=== PATIENT | female | born 2000 | race Two or more races ===

== ENCOUNTER 2018-08-26 12:29 | Inpatient (IN) | payer MEDICARE, OTHER ==
[~2018-08-26] VITALS: Ht 165.1 cm; Wt 84.6 kg
[2018-08-26] VITALS (11 sets, daily range): BP systolic 74–200; BP diastolic 36–116
[~2018-08-26 12:29] MED LIST: LABE100T5 PO
--- NOTE | 2018-08-26 12:58 | PHYS DOC ---
Adult General Chief Complaint Chief Complaint: seizure HPI HPI Patient is a 18 year old female who presents with report of having had seizure- like activity at home. EMS reports that patient had been standing and had fallen to the ground with generalized seizure-like activity. EMS states that call had gone out as CODE BLUE in progress and when they had arrived, patient appeared to be postictal. An IV was established and patient became very combative and was thus given a dose of IV Versed. Additional history is limited at this time due to mental status. Review of Systems Review of Systems Constitutional: Denies fever [] Respiratory: Denies shortness of breath [] Neurologic: Positive seizure-like activity and mental status change[] Unable to fully evaluate review of systems due to mental status. Current Medications Current Medications Current Medications Medications (Trade) Dose Ordered Sig/Prosper Start Time Stop Time Status Last Admin Dose Admin Labetalol HCl (Normodyne Iv Push) 20 mg STK-MED ONCE 08/26/18 13:42 08/26/18 13:43 DC Lorazepam (Ativan) 2 mg 1X ONCE 08/26/18 14:15 08/26/18 14:16 DC 08/26/18 14:19 2 MG Ondansetron HCl (Zofran) 4 mg STK-MED ONCE 08/26/18 13:42 08/26/18 13:43 DC Allergies Allergies Allergies Coded Allergies Type Severity Reaction Last Updated Verified No Known Drug Allergies 03/10/14 No Physical Exam Physical Exam Constitutional: Well developed, well nourished, no acute distress, non-toxic appearance. [] HENT: Normocephalic, atraumatic, bilateral external ears normal, oropharynx moist, no oral exudates, nose normal. [] Eyes: PERRLA, conjunctiva normal, no discharge. [] Neck: Normal range of motion, no tenderness, supple, no stridor. [] Cardiovascular: Regular rate and rhythm [] Lungs & Thorax: Bilateral breath sounds clear to auscultation [] Abdomen: Bowel sounds normal, soft. [] Skin: Warm, dry, no erythema, no rash. [] Extremities: No tenderness, no cyanosis, no clubbing, ROM intact, no edema. [] Neurologic: Somnolent but arousable, postictal state. [] Current Patient Data Vital Signs Vital Signs Date Time Temp Pulse Resp B/P (MAP) Pulse Ox O2 Delivery O2 Flow Rate FiO2 08/26/18 13:46 85 208/125 08/26/18 12:44 98.9 20 95 Room Air 98.9 Lab Values Laboratory Tests Test 08/26/18 13:00 White Blood Count 10.0 x10^3/uL (4.0-11.0) Red Blood Count 4.24 x10^6/uL (3.50-5.40) Hemoglobin 13.1 g/dL (12.0-15.5) Hematocrit 38.9 % (36.0-47.0) Mean Corpuscular Volume 92 fL (79-100) Mean Corpuscular Hemoglobin 31 pg (25-35) Mean Corpuscular Hemoglobin Concent 34 g/dL (31-37) Red Cell Distribution Width 16.3 % (11.5-14.5) H Platelet Count 215 x10^3/uL (140-400) Neutrophils (%) (Auto) 94 % (31-73) H Lymphocytes (%) (Auto) 4 % (24-48) L Monocytes (%) (Auto) 2 % (0-9) Eosinophils (%) (Auto) 0 % (0-3) Basophils (%) (Auto) 0 % (0-3) Neutrophils # (Auto) 9.3 x10^3uL (1.8-7.7) H Lymphocytes # (Auto) 0.4 x10^3/uL (1.0-4.8) L Monocytes # (Auto) 0.2 x10^3/uL (0.0-1.1) Eosinophils # (Auto) 0.0 x10^3/uL (0.0-0.7) Basophils # (Auto) 0.0 x10^3/uL (0.0-0.2) Segmented Neutrophils % 92 % (35-66) H Band Neutrophils % 1 % (0-9) Lymphocytes % 5 % (24-48) L Monocytes % 1 % (0-10) Basophils % 1 % (0-3) Platelet Estimate Adequate (ADEQUATE) Anisocytosis Slight Sodium Level 137 mmol/L (136-145) Potassium Level 4.9 mmol/L (3.5-5.1) Chloride Level 100 mmol/L (98-107) Carbon Dioxide Level 15 mmol/L (21-32) L Anion Gap 22 (6-14) H Blood Urea Nitrogen 148 mg/dL (7-20) H Creatinine 19.3 mg/dL (0.6-1.0) H Estimated GFR (Cockcroft-Gault) 2.3 BUN/Creatinine Ratio 8 (6-20) Glucose Level 90 mg/dL (70-99) Calcium Level 8.7 mg/dL (8.5-10.1) Phosphorus Level 10.3 mg/dL (2.6-4.7) H Magnesium Level 2.9 mg/dL (1.8-2.4) H Total Bilirubin 0.4 mg/dL (0.2-1.0) Aspartate Amino Transferase (AST) 13 U/L (15-37) L Alanine Aminotransferase (ALT) 16 U/L (14-59) Alkaline Phosphatase 78 U/L (46-116) Total Protein 7.8 g/dL (6.4-8.2) Albumin 4.0 g/dL (3.4-5.0) Albumin/Globulin Ratio 1.1 (1.0-1.7) Serum Test, Qualitative Negative (NEG) Laboratory Tests 08/26/18 13:00 Laboratory Tests 08/26/18 13:00 EKG EKG [] Radiology/Procedures Radiology/Procedures [] Impressions: CT scan of the head without contrast 08/26/2018 Clinical History: Hypertension and seizure. Technique: Unenhanced, contiguous, 5 mm axial sections were obtained through the head. One or more of the following individualized dose reduction techniques were utilized for this study: 1. Automated exposure control. 2. Adjustment of the mA and/or kV according to patient size. 3. Use of iterative reconstruction technique. Findings: No previous studies are available for comparison. The ventricles are within normal limits in size and configuration. Somewhat symmetric areas of decreased attenuation are seen involving the occipital and posterior parietal lobes bilaterally. These areas measure 1 to 1.4 cm in size. These could represent areas of edema possibly in the setting of PRES. Clinical correlation is recommended. No additional acute parenchymal abnormality is seen. No extra-axial fluid collection is noted. No skull fracture is seen. A 2.8 cm mucous retention cyst is seen involving the left maxillary sinus. Impression: Somewhat symmetric areas of decreased attenuation are seen involving the occipital and parietal lobes bilaterally. These could reflect areas of edema possibly in the setting of posterior reversible encephalopathy syndrome (PRES). Clinical correlation is recommended. These findings could be further evaluated with a MRI of the brain without and with contrast. Electronically signed by: Kyler Duran MD (08/26/2018 2:07 PM) [id number] Course & Med Decision Making Course & Med Decision Making Pertinent Labs and Imaging studies reviewed. (See chart for details) [] Dragon Disclaimer Dragon Disclaimer This electronic medical record was generated, in whole or in part, using a voice recognition dictation system. Departure Departure Impression: Primary Impression: Recurrent seizures Additional Impression: ESRD (end stage renal disease) on dialysis Disposition: ADMITTED INPATIENT Admitting Physician: David Peterson Condition: IMPROVED Referrals: TIM DIOR APRN (PCP) Problem Qualifiers JOHAN SAPP Jr. DO Aug 26, 2018 12:58
[2018-08-26 13:17] LABS: BASO % 0 % (0-3); EOS % 0 % (0-3); HEMATOCRIT 38.9 % (36.0-47.0); HEMOGLOBIN 13.1 g/dL (12.0-15.5); LYMPH # 0.4 x10^3/uL (1.0-4.8); LYMPH % 4 % (24-48); MEAN CORPUSCULAR HEMOGLOBIN 31 pg (25-35); MEAN CORPUSCULAR HGB CONC 34 g/dL (31-37); MEAN CORPUSCULAR VOLUME 92 fL (79-100); MONO # 0.2 x10^3/uL (0.0-1.1); MONO % 2 % (0-9); NEUT # 9.3 x10^3uL (1.8-7.7); NEUT % 94 % (31-73); PLATELET COUNT 215 x10^3/uL (140-400); RED BLOOD COUNT 4.24 x10^6/uL (3.50-5.40); RED CELL DISTRIBUTION WIDTH 16.3 % (11.5-14.5)
[2018-08-26 13:34] LABS: % BANDS 1 % (0-9); % BASOS 1 % (0-3); % LYMPHS 5 % (24-48); % MONOS 1 % (0-10); % SEGS 92 % (35-66); ANISOCYTOSIS SLIGHT; PLT ESTIMATE ADEQUATE (ADEQUATE)
[2018-08-26 13:38] LABS: CALCIUM 8.7 mg/dL (8.5-10.1); POTASSIUM 4.9 mmol/L (3.5-5.1)
[2018-08-26 13:40] LABS: PREG TEST PT QUAL NEGATIVE (NEG)
[2018-08-26] MEDS ORDERED: LABETALOL 20 MG/4 ML DISP.SYRIN. IVP ONE ×3 (13:42→17:15)
[2018-08-26] MEDS ORDERED: ONDANSETRON PF 4 MG/2 ML VIAL. ONE (13:42)
[2018-08-26] MEDS ORDERED: ONDANSETRON PF 4 MG/2 ML VIAL. IV ONE (13:45)
[2018-08-26 13:47] LABS: ALBUMIN/GLOBULIN RATIO 1.1 (1.0-1.7); MAGNESIUM 2.9 mg/dL (1.8-2.4); TOTAL BILIRUBIN 0.4 mg/dL (0.2-1.0); TOTAL PROTEIN 7.8 g/dL (6.4-8.2)
[2018-08-26 13:57] LABS: PHOSPHORUS 10.3 mg/dL (2.6-4.7)
[2018-08-26 13:58] LABS: CREATININE 19.3 mg/dL (0.6-1.0); GFR 2.3
--- NOTE | 2018-08-26 14:11 | RAD ---
CT scan of the head without contrast 08/26/2018 Clinical History: Hypertension and seizure. Technique: Unenhanced, contiguous, 5 mm axial sections were obtained through the head. One or more of the following individualized dose reduction techniques were utilized for this study: 1. Automated exposure control. 2. Adjustment of the mA and/or kV according to patient size. 3. Use of iterative reconstruction technique. Findings: No previous studies are available for comparison. The ventricles are within normal limits in size and configuration. Somewhat symmetric areas of decreased attenuation are seen involving the occipital and posterior parietal lobes bilaterally. These areas measure 1 to 1.4 cm in size. These could represent areas of edema possibly in the setting of PRES. Clinical correlation is recommended. No additional acute parenchymal abnormality is seen. No extra-axial fluid collection is noted. No skull fracture is seen. A 2.8 cm mucous retention cyst is seen involving the left maxillary sinus. Impression: Somewhat symmetric areas of decreased attenuation are seen involving the occipital and parietal lobes bilaterally. These could reflect areas of edema possibly in the setting of posterior reversible encephalopathy syndrome (PRES). Clinical correlation is recommended. These findings could be further evaluated with a MRI of the brain without and with contrast. Electronically signed by: Kyler Duran MD (08/26/2018 2:07 PM) [id number]
[2018-08-26 14:34] LABS: BARBITURATES NEG (NEG); BENZODIAZEPINES POS (NEG); CANNABINOIDS NEG (NEG); COCAINE NEG (NEG); METHADONE NEG (NEG); OPIATES NEG (NEG); PHENCYCLIDINE NEG (NEG)
[2018-08-26 14:35] LABS: AMPHETAMINE/METHAMPHETAMINE NEG (NEG)
--- NOTE | 2018-08-26 14:46 | PDOC1 ---
History and Physical Date of Admission Date of Admission DATE: 08/26/18 TIME: 14:45 Identification/Chief Complaint Chief Complaint seen in er after seizure today, will plan emergent dialysis in icu today Past Medical History Cardiovascular: HTN Renal/: Chronic renal insuff Past Surgical History Past Surgical History: No pertinent history Family History Family History: Hypertension Social History Smoke: No ALCOHOL: none Drugs: None Current Problem List Problem List Problems Medical Problems: (1) ESRD (end stage renal disease) on dialysis Status: Acute (2) Recurrent seizures Status: Acute Current Medications Current Medications Current Medications Ondansetron HCl (Zofran) 4 mg 1X ONCE IV Last administered on 08/26/18at 13:45 ; Start 08/26/18 at 13:45; Stop 08/26/18 at 13:46; Status DC Labetalol HCl (Normodyne Iv Push) 10 mg 1X ONCE IVP Last administered on at 13:46; Start 08/26/18 at 13:45; Stop 08/26/18 at 13:46; Status DC Labetalol HCl (Normodyne Iv Push) 20 mg STK-MED ONCE IVP ; Start 08/26/18 at 13: 42; Stop 08/26/18 at 13:43; Status DC Ondansetron HCl (Zofran) 4 mg STK-MED ONCE .ROUTE ; Start 08/26/18 at 13:42; Stop 08/26/18 at 13:43; Status DC Lorazepam (Ativan) 2 mg STK-MED ONCE .ROUTE ; Start 08/26/18 at 14:12; Stop 08/26/18 at 14:13; Status DC Lorazepam (Ativan) 2 mg 1X ONCE IV Last administered on 08/26/18at 14:19; Start 08/26/18 at 14:15; Stop 08/26/18 at 14:16; Status DC Active Scripts Active Reported Labetalol Hcl 100 Mg Tablet 100 Mg PO DAILY08 Allergies Allergies: Coded Allergies: No Known Drug Allergies (Unverified , 03/10/14) ROS Review of System Review of Systems Review of Systems Constitutional: Denies fever [] Respiratory: Denies shortness of breath [] Neurologic: Positive seizure-like activity and mental status change seizure at home[] Unable to fully evaluate review of systems due to mental status. 14 pt ros otherwise neg according to family General: YES: Fatigue PSYCHOLOGICAL ROS: YES: Disorientation Eyes: Yes Decreased vision ALLERGY AND IMMUNOLOGY: No: Hives, Insect Bite Sensitivity, Itchy/Watery Eyes, Nasal Congestion, Post Nasal Drip, Seasonal Allergies, Other Hematological and Lymphatic: No: Bleeding Problems, Blood Clots, Blood Transfusions, Brusing, Night Sweats, Pallor, Swollen Lymph Nodes, Other ENDOCRINE: No: Breast Changes, Galactorrhea, Hair Pattern Changes, Hot Flashes , Malaise/lethargy, Mood Swings, Palpitations, Polydipsia/polyuria, Skin Changes , Temperature Intolerance, Unexpected Weight Changes, Other Respiratory: No: Cough, Hemoptysis, Orthopnea, Pleuritic Pain, Shortness of breath, SOB with excertion, Sputum Changes, Stridor, Tachypnea, Wheezing, Other Neurological: Yes Confusion Physical Exam Physical Exam Physical Exam Physical Exam Constitutional: mild acute distress, non-toxic appearance. [] HENT: Normocephalic, atraumatic, bilateral external ears normal, oropharynx moist, no oral exudates, nose normal. [] Eyes: PERRLA, conjunctiva normal, no discharge. [] Neck: Normal range of motion, no tenderness, supple, no stridor. [] Cardiovascular: Regular rate and rhythm [] Lungs & Thorax: Bilateral breath sounds clear to auscultation [] Abdomen: Bowel sounds normal, soft. [] Skin: Warm, dry, no erythema, no rash. [] Extremities: No tenderness, no cyanosis, no clubbing, ROM intact, no edema. [] Neurologic: Somnolent but arousable, postictal state. [] General: Cooperative, mild distress Lungs: Clear to auscultation, Normal air movement Heart: S1S2, RRR Breasts: Not examined Abdomen: Normal bowel sounds, Soft, No tenderness Rectal Exam: not examined Neuro: Cranial nerves 3-12 NL Vitals Vitals Vital Signs Date Time Temp Pulse Resp B/P (MAP) Pulse Ox O2 Delivery O2 Flow Rate FiO2 08/26/18 13:46 85 208/125 08/26/18 12:44 98.9 20 95 Room Air 98.9 Labs Labs Laboratory Tests Test 08/26/18 13:00 08/26/18 14:10 White Blood Count 10.0 x10^3/uL (4.0-11.0) Red Blood Count 4.24 x10^6/uL (3.50-5.40) Hemoglobin 13.1 g/dL (12.0-15.5) Hematocrit 38.9 % (36.0-47.0) Mean Corpuscular Volume 92 fL (79-100) Mean Corpuscular Hemoglobin 31 pg (25-35) Mean Corpuscular Hemoglobin Concent 34 g/dL (31-37) Red Cell Distribution Width 16.3 % (11.5-14.5) Platelet Count 215 x10^3/uL (140-400) Neutrophils (%) (Auto) 94 % (31-73) Lymphocytes (%) (Auto) 4 % (24-48) Monocytes (%) (Auto) 2 % (0-9) Eosinophils (%) (Auto) 0 % (0-3) Basophils (%) (Auto) 0 % (0-3) Neutrophils # (Auto) 9.3 x10^3uL (1.8-7.7) Lymphocytes # (Auto) 0.4 x10^3/uL (1.0-4.8) Monocytes # (Auto) 0.2 x10^3/uL (0.0-1.1) Eosinophils # (Auto) 0.0 x10^3/uL (0.0-0.7) Basophils # (Auto) 0.0 x10^3/uL (0.0-0.2) Segmented Neutrophils % 92 % (35-66) Band Neutrophils % 1 % (0-9) Lymphocytes % 5 % (24-48) Monocytes % 1 % (0-10) Basophils % 1 % (0-3) Platelet Estimate Adequate (ADEQUATE) Anisocytosis Slight Sodium Level 137 mmol/L (136-145) Potassium Level 4.9 mmol/L (3.5-5.1) Chloride Level 100 mmol/L (98-107) Carbon Dioxide Level 15 mmol/L (21-32) Anion Gap 22 (6-14) Blood Urea Nitrogen 148 mg/dL (7-20) Creatinine 19.3 mg/dL (0.6-1.0) Estimated GFR (Cockcroft-Gault) 2.3 BUN/Creatinine Ratio 8 (6-20) Glucose Level 90 mg/dL (70-99) Calcium Level 8.7 mg/dL (8.5-10.1) Phosphorus Level 10.3 mg/dL (2.6-4.7) Magnesium Level 2.9 mg/dL (1.8-2.4) Total Bilirubin 0.4 mg/dL (0.2-1.0) Aspartate Amino Transf (AST/SGOT) 13 U/L (15-37) Alanine Aminotransferase (ALT/SGPT) 16 U/L (14-59) Alkaline Phosphatase 78 U/L (46-116) Total Protein 7.8 g/dL (6.4-8.2) Albumin 4.0 g/dL (3.4-5.0) Albumin/Globulin Ratio 1.1 (1.0-1.7) Serum Test, Qualitative Negative (NEG) Urine Opiates Screen Neg (NEG) Urine Methadone Screen Neg (NEG) Urine Barbiturates Neg (NEG) Urine Phencyclidine Screen Neg (NEG) Urine Amphetamine/Methamphetamine Neg (NEG) Urine Benzodiazepines Screen Pos (NEG) Urine Cocaine Screen Neg (NEG) Urine Cannabinoids Screen Neg (NEG) Urine Ethyl Alcohol Neg (NEG) Laboratory Tests Test 08/26/18 13:00 08/26/18 14:10 White Blood Count 10.0 x10^3/uL (4.0-11.0) Red Blood Count 4.24 x10^6/uL (3.50-5.40) Hemoglobin 13.1 g/dL (12.0-15.5) Hematocrit 38.9 % (36.0-47.0) Mean Corpuscular Volume 92 fL (79-100) Mean Corpuscular Hemoglobin 31 pg (25-35) Mean Corpuscular Hemoglobin Concent 34 g/dL (31-37) Red Cell Distribution Width 16.3 % (11.5-14.5) Platelet Count 215 x10^3/uL (140-400) Neutrophils (%) (Auto) 94 % (31-73) Lymphocytes (%) (Auto) 4 % (24-48) Monocytes (%) (Auto) 2 % (0-9) Eosinophils (%) (Auto) 0 % (0-3) Basophils (%) (Auto) 0 % (0-3) Neutrophils # (Auto) 9.3 x10^3uL (1.8-7.7) Lymphocytes # (Auto) 0.4 x10^3/uL (1.0-4.8) Monocytes # (Auto) 0.2 x10^3/uL (0.0-1.1) Eosinophils # (Auto) 0.0 x10^3/uL (0.0-0.7) Basophils # (Auto) 0.0 x10^3/uL (0.0-0.2) Segmented Neutrophils % 92 % (35-66) Band Neutrophils % 1 % (0-9) Lymphocytes % 5 % (24-48) Monocytes % 1 % (0-10) Basophils % 1 % (0-3) Platelet Estimate Adequate (ADEQUATE) Anisocytosis Slight Sodium Level 137 mmol/L (136-145) Potassium Level 4.9 mmol/L (3.5-5.1) Chloride Level 100 mmol/L (98-107) Carbon Dioxide Level 15 mmol/L (21-32) Anion Gap 22 (6-14) Blood Urea Nitrogen 148 mg/dL (7-20) Creatinine 19.3 mg/dL (0.6-1.0) Estimated GFR (Cockcroft-Gault) 2.3 BUN/Creatinine Ratio 8 (6-20) Glucose Level 90 mg/dL (70-99) Calcium Level 8.7 mg/dL (8.5-10.1) Phosphorus Level 10.3 mg/dL (2.6-4.7) Magnesium Level 2.9 mg/dL (1.8-2.4) Total Bilirubin 0.4 mg/dL (0.2-1.0) Aspartate Amino Transf (AST/SGOT) 13 U/L (15-37) Alanine Aminotransferase (ALT/SGPT) 16 U/L (14-59) Alkaline Phosphatase 78 U/L (46-116) Total Protein 7.8 g/dL (6.4-8.2) Albumin 4.0 g/dL (3.4-5.0) Albumin/Globulin Ratio 1.1 (1.0-1.7) Serum Test, Qualitative Negative (NEG) Urine Opiates Screen Neg (NEG) Urine Methadone Screen Neg (NEG) Urine Barbiturates Neg (NEG) Urine Phencyclidine Screen Neg (NEG) Urine Amphetamine/Methamphetamine Neg (NEG) Urine Benzodiazepines Screen Pos (NEG) Urine Cocaine Screen Neg (NEG) Urine Cannabinoids Screen Neg (NEG) Urine Ethyl Alcohol Neg (NEG) VTE Prophylaxis Ordered VTE Prophylaxis Devices: Yes VTE Pharmacological Prophylaxi: Yes Assessment/Plan Assessment/Plan impression 1. acute on chronic renal failure 2. hypertension 3. seizure 4. hx ckd since age 13 plan iv ativan 2 mg q 2 hrs prn seizure precautions nephrology consult icu bed neurology consult ct head 37 min cc time TAMEKA FLAHERTY MD Aug 26, 2018 14:46
[2018-08-26] MEDS ORDERED: levETIRAcetam 750 MG in IV DEXTROSE 5% 100ML 100 ML IV ONE (17:30)
[2018-08-26 17:31] LABS: BASE EXCESS ABG -16 mmol/L (-3-3); HCO3 ABG 11 mmol/L (21-28); PCO2 ABG 28 mmHg (35-46); PO2 ABG 200 mmHg (85-108); SAT O2 ABG 99 % (92-99)
[2018-08-26] MEDS ORDERED: SODIUM BICARB ADULT 8.4% 50 MEQ/50 ML DISP.SYRIN. ONE (17:34)
[2018-08-26 17:36] LABS: FIO2 ABG 21
[2018-08-26] MEDS ORDERED: SODIUM BICARB ADULT 8.4% 50 MEQ/50 ML DISP.SYRIN. IV ONE (17:45)
[2018-08-26] MEDS ORDERED: IV NORMAL SALINE 1000ML BAG 1,000 ML IV PRN ×2 (17:55)
[2018-08-26] MEDS ORDERED: DIALYSIS PATIENT. MC PRN ×2 (18:00)
[2018-08-26] MEDS ORDERED: SODIUM BICARBONATE VIAL 50 MEQ in IV NORMAL SALINE 1000ML BAG 1,000 ML IV SCH (18:00)
--- NOTE | 2018-08-26 20:08 | PDOC2 ---
NEUROLOGY CONSULT Date of Admission Date of Admission DATE: 08/26/18 TIME: 19:52 Reason for Consult Reason for Consult: IMPRESSION: Seizure, status epilepticus. PRES syndrome. Hypertensive emergency, BP 200/116 mmHg. Metabolic encephalopathy. Hypertensive encephalopathy. Renal failure, not compliant to dialysis. HTN. Obesity. RECOMMENDATIONS/PLAN: Ativan 2 mg IV q 4h PRN seizure. Keppra 750 mg IV x 1 dose. Keppra 500 mg IV q12h. Dialysis. EEG. Brain MRI w/o contrast. No contrast due to renal failure. Lab: see orders. Discussed with her mother and sister at bedside in ICU on 08/26/18. HISTORY OF THE PRESENT ILLNESS: 18-y-old female patient with Hx of renal failure stated to have dialysis in , but she missed dialysis due to not compliant to the treatment. She had a seizure or seizure like episode to be brought to the ER of [facility] and was admitted to [facility]. She tehn had more seizures want to status to be transferred to ICU. Per her sister, she had a seizure about 4 months agao and was seen in [facility] thought was related to UTI. PAST MEDICAL HISTORY: HTN. Renal failure. PAST SURGICAL HISTORY: Dialysis fistula placement. ALLERGY: Unknown MEDICATIONS: Refer to [facility] FAMILY HISTORY: HTN. SOCIAL HISTORY: On disability. Lives with her mother and her 4 year boy. Denies smoking, drinking, and illicit drug use. REVIEW OF SYSTEMS: Constitutional: Obesity. Head: No traumatic brain or head injury. Skin: No edema, or rash. Ear: No infection, tinnitus. Eyes: No vision loss or color blindness. Nose: No bleeding or purulent discharges. Hearing: No hearing decrease. Neck: No injury. Breast: No history of cancer, masses,or discharges. Cardiac: HTN. Pulmonary: No pneumonia, COPD. GI: No GI ulcer, GI bleeding. Urinary/genital: Renal failure, UTI. Endocrinologic: Obesity. Skeletomuscular: No muscular atrophy, deformity. Neurological: see HP. Psychiatric: Denies drug use/abuse. Otherwise, not [id number] review of systems. PHYSICAL EXAMINATION: General appearance is in acute distress. HEENT: Normocephalic and nontraumatic. Eyes, nose, ears, and throat are unremarkable. Neck is supple. No lymphadenopathy. No bruits are heard over the carotid artery. No crepitus. Cardiovascular: S1, S2, regular rate and rhythm. Pulmonary: Clear to auscultation bilaterally. Abdomen: Bowel sounds are positive. Extremities: No rash, lesions, or edema. No restriction of range of motion NEUROLOGICAL EXAMINATION: Mildly lethargic. Not oriented to time, place but knew her family. PERRL. EOMI. CN: no focal findings. Muscle tone: within normal. Muscle strength: 4-5 DTR: 1-2 Plantar reflex: Flexor response bilaterally Gait: not examined in bed. Sensory exam: no abnormal findings. Not able to access cerebellar signs due to lethargy. F-T-N test nor performed due to not follow commands.. Current Medications Current Medications Current Medications Ondansetron HCl (Zofran) 4 mg 1X ONCE IV Last administered on 08/26/18at 13:45 ; Start 08/26/18 at 13:45; Stop 08/26/18 at 13:46; Status DC Labetalol HCl (Normodyne Iv Push) 10 mg 1X ONCE IVP Last administered on at 13:46; Start 08/26/18 at 13:45; Stop 08/26/18 at 13:46; Status DC Labetalol HCl (Normodyne Iv Push) 20 mg STK-MED ONCE IVP ; Start 08/26/18 at 13: 42; Stop 08/26/18 at 13:43; Status DC Ondansetron HCl (Zofran) 4 mg STK-MED ONCE .ROUTE ; Start 08/26/18 at 13:42; Stop 08/26/18 at 13:43; Status DC Lorazepam (Ativan) 2 mg STK-MED ONCE .ROUTE ; Start 08/26/18 at 14:12; Stop 08/26/18 at 14:13; Status DC Lorazepam (Ativan) 2 mg 1X ONCE IV Last administered on 08/26/18at 14:19; Start 08/26/18 at 14:15; Stop 08/26/18 at 14:16; Status DC Lorazepam (Ativan) 2 mg 1X STAT IV Last administered on 08/26/18at 16:02; Start 08/26/18 at 16:09; Stop 08/26/18 at 16:16; Status DC Lorazepam (Ativan) 2 mg PRN Q4HRS PRN IV ANXIETY / AGITATION; Start 08/26/18 at 17:15 Levetiracetam 750 mg/Dextrose 107.5 ml @ 440 mls/hr 1X ONCE IV Last administered on 08/26/18at 17:42; Start 08/26/18 at 17:30; Stop 08/26/18 at 17:44 ; Status DC Levetiracetam 500 mg/Dextrose 105 ml @ 420 mls/hr Q12HR IV ; Start 08/27/18 at 09:00 Heparin Sodium (Porcine) (Heparin Sodium) 5,000 unit BID SQ ; Start 08/26/18 at 21:00 Labetalol HCl (Normodyne Iv Push) 20 mg 1X ONCE IVP Last administered on at 17:40; Start 08/26/18 at 17:15; Stop 08/26/18 at 17:16; Status DC Lorazepam (Ativan) 2 mg PRN Q2HR PRN IV SEIZURE Last administered on 08/26/18at 17:03; Start 08/26/18 at 17:15 Sodium Bicarbonate (Sodium Bicarb Adult 8.4% Syr) 50 meq STK-MED ONCE .ROUTE ; Start 08/26/18 at 17:34; Stop 08/26/18 at 17:35; Status DC Sodium Bicarbonate (Sodium Bicarb Adult 8.4% Syr) 50 meq 1X ONCE IV Last administered on 08/26/18at 17:41; Start 08/26/18 at 17:45; Stop 08/26/18 at 17:46 ; Status DC Sodium Bicarbonate 50 meq/Sodium Chloride 1,050 ml @ 80 mls/hr Q13H8M IV Last administered on 08/26/18at 17:58; Start 08/26/18 at 18:00; Stop 08/27/18 at 07:07 Sodium Chloride 1,000 ml @ 1,000 mls/hr Q1H PRN IV hypotension; Start 08/26/18 at 17:55; Stop 08/26/18 at 23:54 Sodium Chloride 1,000 ml @ 400 mls/hr Q2H30M PRN IV PATENCY; Start 08/26/18 at 17:55; Stop 08/27/18 at 05:54 Info (PHARMACY MONITORING -- do not chart) 1 each PRN DAILY PRN MC SEE COMMENTS ; Start 08/26/18 at 18:00; Status UNV Info (PHARMACY MONITORING -- do not chart) 1 each PRN DAILY PRN MC SEE COMMENTS ; Start 08/26/18 at 18:00 Nicardipine HCl 50 mg/Sodium Chloride 270 ml @ 27 mls/hr CONT PRN IV SEE I/O RECORD Last administered on 08/26/18at 18:20; Start 08/26/18 at 18:15 Influenza Virus Vaccine (Afluria Trivalent [id number] Syringe) 0.5 ml ONCE ONCE VAX IM ; Start 08/26/18 at 18:45; Stop 08/26/18 at 18:46; Status DC Active Scripts Active Reported Labetalol Hcl 100 Mg Tablet 100 Mg PO DAILY08 Allergies Allergies: Allergies Coded Allergies Type Severity Reaction Last Updated Verified No Known Drug Allergies 03/10/14 No ROS Review of System The patient denies any associated fevers, chills, headache, ear pain, rhinorrhea , sore throat, stiff neck, productive cough, chest pain, shortness of breath, back or flank pain, abdominal pain, nausea, vomiting, diarrhea, constipation, dysuria, rash, numbness, weakness, tingling, incontinence, difficulty ambulating, or diaphoresis. Physical Exam Physical Exam General: Well developed, well nourished, no acute distress, well appearing HEENT: Pupils equally round and reactive to light, EOMI, no discharge, normal conjunctiva Neck: Supple, no nuchal rigidity, no JVD, trachea midline, no tenderness Cardiac: RRR, no murmurs, no gallops, no rubs Chest/Lungs: CTAB, no wheeze, no rhonchi, no crackles Abdomen: soft, non-distended, no guarding, no peritoneal signs, non-tender Back: No tenderness Extremities: no edema, pulses intact, non-tender,capillary refill <3 sec bilateral upper and lower extremities, Neuro: Alert and oriented x 4, no focal deficits, normal speech Vitals Vitals: Vital Signs Date Time Temp Pulse Resp B/P (MAP) Pulse Ox O2 Delivery O2 Flow Rate FiO2 08/26/18 19:00 128 16 163/89 (113) 100 Nasal Cannula 2.0 08/26/18 17:05 98.0 98.0 Labs Labs Laboratory Tests Test 08/26/18 13:00 08/26/18 14:10 08/26/18 17:14 White Blood Count 10.0 x10^3/uL (4.0-11.0) Red Blood Count 4.24 x10^6/uL (3.50-5.40) Hemoglobin 13.1 g/dL (12.0-15.5) Hematocrit 38.9 % (36.0-47.0) Mean Corpuscular Volume 92 fL (79-100) Mean Corpuscular Hemoglobin 31 pg (25-35) Mean Corpuscular Hemoglobin Concent 34 g/dL (31-37) Red Cell Distribution Width 16.3 % (11.5-14.5) Platelet Count 215 x10^3/uL (140-400) Neutrophils (%) (Auto) 94 % (31-73) Lymphocytes (%) (Auto) 4 % (24-48) Monocytes (%) (Auto) 2 % (0-9) Eosinophils (%) (Auto) 0 % (0-3) Basophils (%) (Auto) 0 % (0-3) Neutrophils # (Auto) 9.3 x10^3uL (1.8-7.7) Lymphocytes # (Auto) 0.4 x10^3/uL (1.0-4.8) Monocytes # (Auto) 0.2 x10^3/uL (0.0-1.1) Eosinophils # (Auto) 0.0 x10^3/uL (0.0-0.7) Basophils # (Auto) 0.0 x10^3/uL (0.0-0.2) Segmented Neutrophils % 92 % (35-66) Band Neutrophils % 1 % (0-9) Lymphocytes % 5 % (24-48) Monocytes % 1 % (0-10) Basophils % 1 % (0-3) Platelet Estimate Adequate (ADEQUATE) Anisocytosis Slight Sodium Level 137 mmol/L (136-145) Potassium Level 4.9 mmol/L (3.5-5.1) Chloride Level 100 mmol/L (98-107) Carbon Dioxide Level 15 mmol/L (21-32) Anion Gap 22 (6-14) Blood Urea Nitrogen 148 mg/dL (7-20) Creatinine 19.3 mg/dL (0.6-1.0) Estimated GFR (Cockcroft-Gault) 2.3 BUN/Creatinine Ratio 8 (6-20) Glucose Level 90 mg/dL (70-99) Calcium Level 8.7 mg/dL (8.5-10.1) Phosphorus Level 10.3 mg/dL (2.6-4.7) Magnesium Level 2.9 mg/dL (1.8-2.4) Total Bilirubin 0.4 mg/dL (0.2-1.0) Aspartate Amino Transf (AST/SGOT) 13 U/L (15-37) Alanine Aminotransferase (ALT/SGPT) 16 U/L (14-59) Alkaline Phosphatase 78 U/L (46-116) Total Protein 7.8 g/dL (6.4-8.2) Albumin 4.0 g/dL (3.4-5.0) Albumin/Globulin Ratio 1.1 (1.0-1.7) Thyroid Stimulating Hormone (TSH) 4.023 uIU/mL (0.358-3.74) Serum Test, Qualitative Negative (NEG) Urine Opiates Screen Neg (NEG) Urine Methadone Screen Neg (NEG) Urine Barbiturates Neg (NEG) Urine Phencyclidine Screen Neg (NEG) Urine Amphetamine/Methamphetamine Neg (NEG) Urine Benzodiazepines Screen Pos (NEG) Urine Cocaine Screen Neg (NEG) Urine Cannabinoids Screen Neg (NEG) Urine Ethyl Alcohol Neg (NEG) O2 Saturation 99 % (92-99) Arterial Blood pH 7.19 (7.35-7.45) Arterial Blood pCO2 at Patient Temp 28 mmHg (35-46) Arterial Blood pO2 at Patient Temp 200 mmHg (85-108) Arterial Blood HCO3 11 mmol/L (21-28) Arterial Blood Base Excess -16 mmol/L (-3-3) FiO2 21 Laboratory Tests Test 08/26/18 13:00 08/26/18 14:10 08/26/18 17:14 White Blood Count 10.0 x10^3/uL (4.0-11.0) Red Blood Count 4.24 x10^6/uL (3.50-5.40) Hemoglobin 13.1 g/dL (12.0-15.5) Hematocrit 38.9 % (36.0-47.0) Mean Corpuscular Volume 92 fL (79-100) Mean Corpuscular Hemoglobin 31 pg (25-35) Mean Corpuscular Hemoglobin Concent 34 g/dL (31-37) Red Cell Distribution Width 16.3 % (11.5-14.5) Platelet Count 215 x10^3/uL (140-400) Neutrophils (%) (Auto) 94 % (31-73) Lymphocytes (%) (Auto) 4 % (24-48) Monocytes (%) (Auto) 2 % (0-9) Eosinophils (%) (Auto) 0 % (0-3) Basophils (%) (Auto) 0 % (0-3) Neutrophils # (Auto) 9.3 x10^3uL (1.8-7.7) Lymphocytes # (Auto) 0.4 x10^3/uL (1.0-4.8) Monocytes # (Auto) 0.2 x10^3/uL (0.0-1.1) Eosinophils # (Auto) 0.0 x10^3/uL (0.0-0.7) Basophils # (Auto) 0.0 x10^3/uL (0.0-0.2) Segmented Neutrophils % 92 % (35-66) Band Neutrophils % 1 % (0-9) Lymphocytes % 5 % (24-48) Monocytes % 1 % (0-10) Basophils % 1 % (0-3) Platelet Estimate Adequate (ADEQUATE) Anisocytosis Slight Sodium Level 137 mmol/L (136-145) Potassium Level 4.9 mmol/L (3.5-5.1) Chloride Level 100 mmol/L (98-107) Carbon Dioxide Level 15 mmol/L (21-32) Anion Gap 22 (6-14) Blood Urea Nitrogen 148 mg/dL (7-20) Creatinine 19.3 mg/dL (0.6-1.0) Estimated GFR (Cockcroft-Gault) 2.3 BUN/Creatinine Ratio 8 (6-20) Glucose Level 90 mg/dL (70-99) Calcium Level 8.7 mg/dL (8.5-10.1) Phosphorus Level 10.3 mg/dL (2.6-4.7) Magnesium Level 2.9 mg/dL (1.8-2.4) Total Bilirubin 0.4 mg/dL (0.2-1.0) Aspartate Amino Transf (AST/SGOT) 13 U/L (15-37) Alanine Aminotransferase (ALT/SGPT) 16 U/L (14-59) Alkaline Phosphatase 78 U/L (46-116) Total Protein 7.8 g/dL (6.4-8.2) Albumin 4.0 g/dL (3.4-5.0) Albumin/Globulin Ratio 1.1 (1.0-1.7) Thyroid Stimulating Hormone (TSH) 4.023 uIU/mL (0.358-3.74) Serum Test, Qualitative Negative (NEG) Urine Opiates Screen Neg (NEG) Urine Methadone Screen Neg (NEG) Urine Barbiturates Neg (NEG) Urine Phencyclidine Screen Neg (NEG) Urine Amphetamine/Methamphetamine Neg (NEG) Urine Benzodiazepines Screen Pos (NEG) Urine Cocaine Screen Neg (NEG) Urine Cannabinoids Screen Neg (NEG) Urine Ethyl Alcohol Neg (NEG) O2 Saturation 99 % (92-99) Arterial Blood pH 7.19 (7.35-7.45) Arterial Blood pCO2 at Patient Temp 28 mmHg (35-46) Arterial Blood pO2 at Patient Temp 200 mmHg (85-108) Arterial Blood HCO3 11 mmol/L (21-28) Arterial Blood Base Excess -16 mmol/L (-3-3) FiO2 21 ADALBERTO ROSS MD Aug 26, 2018 20:08
[2018-08-26] MEDS: HEPARIN for SUB-Q USE 5,000 UNIT/ML VIAL. SQ SCH (21:40)
[2018-08-27] VITALS (18 sets, daily range): BP systolic 128–161; BP diastolic 54–104
[2018-08-27] MEDS ORDERED: HYDROcodone/APAP 5/325MG 1 TAB TABLET PO PRN (01:45)
[2018-08-27] MEDS: METOPROLOL TARTRATE 5 MG/5 ML VIAL. IVP PRN ×3 (01:54→20:59)
[2018-08-27 05:42] LABS: BASO % 1 % (0-3); EOS % 0 % (0-3); HEMATOCRIT 37.3 % (36.0-47.0); HEMOGLOBIN 12.6 g/dL (12.0-15.5); LYMPH # 0.8 x10^3/uL (1.0-4.8); LYMPH % 11 % (24-48); MEAN CORPUSCULAR HEMOGLOBIN 31 pg (25-35); MEAN CORPUSCULAR HGB CONC 34 g/dL (31-37); MEAN CORPUSCULAR VOLUME 90 fL (79-100); MONO # 0.3 x10^3/uL (0.0-1.1); MONO % 4 % (0-9); NEUT # 6.1 x10^3uL (1.8-7.7); NEUT % 84 % (31-73); PLATELET COUNT 226 x10^3/uL (140-400); RED BLOOD COUNT 4.14 x10^6/uL (3.50-5.40); RED CELL DISTRIBUTION WIDTH 16.4 % (11.5-14.5); WHITE BLOOD COUNT 7.3 x10^3/uL (4.0-11.0)
[2018-08-27 06:03] LABS: CALCIUM 9.2 mg/dL (8.5-10.1); GFR 3.7; POTASSIUM 3.8 mmol/L (3.5-5.1)
--- NOTE | 2018-08-27 08:48 | PDOC ---
PULMONARY PROGRESS NOTES Vitals Vital Signs Date Time Temp Pulse Resp B/P (MAP) Pulse Ox O2 Delivery O2 Flow Rate FiO2 08/27/18 07:00 104 16 144/79 (100) 98 Room Air 08/27/18 04:00 98.2 98.2 08/27/18 01:00 Labs Laboratory Tests Test 08/26/18 13:00 08/26/18 14:10 08/26/18 17:14 08/27/18 04:35 White Blood Count 10.0 x10^3/uL (4.0-11.0) 7.3 x10^3/uL (4.0-11.0) Red Blood Count 4.24 x10^6/uL (3.50-5.40) 4.14 x10^6/uL (3.50-5.40) Hemoglobin 13.1 g/dL (12.0-15.5) 12.6 g/dL (12.0-15.5) Hematocrit 38.9 % (36.0-47.0) 37.3 % (36.0-47.0) Mean Corpuscular Volume 92 fL (79-100) 90 fL (79-100) Mean Corpuscular Hemoglobin 31 pg (25-35) 31 pg (25-35) Mean Corpuscular Hemoglobin Concent 34 g/dL (31-37) 34 g/dL (31-37) Red Cell Distribution Width 16.3 % (11.5-14.5) 16.4 % (11.5-14.5) Platelet Count 215 x10^3/uL (140-400) 226 x10^3/uL (140-400) Neutrophils (%) (Auto) 94 % (31-73) 84 % (31-73) Lymphocytes (%) (Auto) 4 % (24-48) 11 % (24-48) Monocytes (%) (Auto) 2 % (0-9) 4 % (0-9) Eosinophils (%) (Auto) 0 % (0-3) 0 % (0-3) Basophils (%) (Auto) 0 % (0-3) 1 % (0-3) Neutrophils # (Auto) 9.3 x10^3uL (1.8-7.7) 6.1 x10^3uL (1.8-7.7) Lymphocytes # (Auto) 0.4 x10^3/uL (1.0-4.8) 0.8 x10^3/uL (1.0-4.8) Monocytes # (Auto) 0.2 x10^3/uL (0.0-1.1) 0.3 x10^3/uL (0.0-1.1) Eosinophils # (Auto) 0.0 x10^3/uL (0.0-0.7) 0.0 x10^3/uL (0.0-0.7) Basophils # (Auto) 0.0 x10^3/uL (0.0-0.2) 0.0 x10^3/uL (0.0-0.2) Segmented Neutrophils % 92 % (35-66) Band Neutrophils % 1 % (0-9) Lymphocytes % 5 % (24-48) Monocytes % 1 % (0-10) Basophils % 1 % (0-3) Platelet Estimate Adequate (ADEQUATE) Anisocytosis Slight Sodium Level 137 mmol/L (136-145) 138 mmol/L (136-145) Potassium Level 4.9 mmol/L (3.5-5.1) 3.8 mmol/L (3.5-5.1) Chloride Level 100 mmol/L (98-107) 100 mmol/L (98-107) Carbon Dioxide Level 15 mmol/L (21-32) 23 mmol/L (21-32) Anion Gap 22 (6-14) 15 (6-14) Blood Urea Nitrogen 148 mg/dL (7-20) 68 mg/dL (7-20) Creatinine 19.3 mg/dL (0.6-1.0) 13.0 mg/dL (0.6-1.0) Estimated GFR (Cockcroft-Gault) 2.3 3.7 BUN/Creatinine Ratio 8 (6-20) Glucose Level 90 mg/dL (70-99) 99 mg/dL (70-99) Calcium Level 8.7 mg/dL (8.5-10.1) 9.2 mg/dL (8.5-10.1) Phosphorus Level 10.3 mg/dL (2.6-4.7) Magnesium Level 2.9 mg/dL (1.8-2.4) Total Bilirubin 0.4 mg/dL (0.2-1.0) Aspartate Amino Transf (AST/SGOT) 13 U/L (15-37) Alanine Aminotransferase (ALT/SGPT) 16 U/L (14-59) Alkaline Phosphatase 78 U/L (46-116) Total Protein 7.8 g/dL (6.4-8.2) Albumin 4.0 g/dL (3.4-5.0) Albumin/Globulin Ratio 1.1 (1.0-1.7) Thyroid Stimulating Hormone (TSH) 4.023 uIU/mL (0.358-3.74) Serum Test, Qualitative Negative (NEG) Urine Opiates Screen Neg (NEG) Urine Methadone Screen Neg (NEG) Urine Barbiturates Neg (NEG) Urine Phencyclidine Screen Neg (NEG) Urine Amphetamine/Methamphetamine Neg (NEG) Urine Benzodiazepines Screen Pos (NEG) Urine Cocaine Screen Neg (NEG) Urine Cannabinoids Screen Neg (NEG) Urine Ethyl Alcohol Neg (NEG) O2 Saturation 99 % (92-99) Arterial Blood pH 7.19 (7.35-7.45) Arterial Blood pCO2 at Patient Temp 28 mmHg (35-46) Arterial Blood pO2 at Patient Temp 200 mmHg (85-108) Arterial Blood HCO3 11 mmol/L (21-28) Arterial Blood Base Excess -16 mmol/L (-3-3) FiO2 21 Laboratory Tests Test 08/26/18 13:00 08/26/18 14:10 08/26/18 17:14 08/27/18 04:35 White Blood Count 10.0 x10^3/uL (4.0-11.0) 7.3 x10^3/uL (4.0-11.0) Red Blood Count 4.24 x10^6/uL (3.50-5.40) 4.14 x10^6/uL (3.50-5.40) Hemoglobin 13.1 g/dL (12.0-15.5) 12.6 g/dL (12.0-15.5) Hematocrit 38.9 % (36.0-47.0) 37.3 % (36.0-47.0) Mean Corpuscular Volume 92 fL (79-100) 90 fL (79-100) Mean Corpuscular Hemoglobin 31 pg (25-35) 31 pg (25-35) Mean Corpuscular Hemoglobin Concent 34 g/dL (31-37) 34 g/dL (31-37) Red Cell Distribution Width 16.3 % (11.5-14.5) 16.4 % (11.5-14.5) Platelet Count 215 x10^3/uL (140-400) 226 x10^3/uL (140-400) Neutrophils (%) (Auto) 94 % (31-73) 84 % (31-73) Lymphocytes (%) (Auto) 4 % (24-48) 11 % (24-48) Monocytes (%) (Auto) 2 % (0-9) 4 % (0-9) Eosinophils (%) (Auto) 0 % (0-3) 0 % (0-3) Basophils (%) (Auto) 0 % (0-3) 1 % (0-3) Neutrophils # (Auto) 9.3 x10^3uL (1.8-7.7) 6.1 x10^3uL (1.8-7.7) Lymphocytes # (Auto) 0.4 x10^3/uL (1.0-4.8) 0.8 x10^3/uL (1.0-4.8) Monocytes # (Auto) 0.2 x10^3/uL (0.0-1.1) 0.3 x10^3/uL (0.0-1.1) Eosinophils # (Auto) 0.0 x10^3/uL (0.0-0.7) 0.0 x10^3/uL (0.0-0.7) Basophils # (Auto) 0.0 x10^3/uL (0.0-0.2) 0.0 x10^3/uL (0.0-0.2) Segmented Neutrophils % 92 % (35-66) Band Neutrophils % 1 % (0-9) Lymphocytes % 5 % (24-48) Monocytes % 1 % (0-10) Basophils % 1 % (0-3) Platelet Estimate Adequate (ADEQUATE) Anisocytosis Slight Sodium Level 137 mmol/L (136-145) 138 mmol/L (136-145) Potassium Level 4.9 mmol/L (3.5-5.1) 3.8 mmol/L (3.5-5.1) Chloride Level 100 mmol/L (98-107) 100 mmol/L (98-107) Carbon Dioxide Level 15 mmol/L (21-32) 23 mmol/L (21-32) Anion Gap 22 (6-14) 15 (6-14) Blood Urea Nitrogen 148 mg/dL (7-20) 68 mg/dL (7-20) Creatinine 19.3 mg/dL (0.6-1.0) 13.0 mg/dL (0.6-1.0) Estimated GFR (Cockcroft-Gault) 2.3 3.7 BUN/Creatinine Ratio 8 (6-20) Glucose Level 90 mg/dL (70-99) 99 mg/dL (70-99) Calcium Level 8.7 mg/dL (8.5-10.1) 9.2 mg/dL (8.5-10.1) Phosphorus Level 10.3 mg/dL (2.6-4.7) Magnesium Level 2.9 mg/dL (1.8-2.4) Total Bilirubin 0.4 mg/dL (0.2-1.0) Aspartate Amino Transf (AST/SGOT) 13 U/L (15-37) Alanine Aminotransferase (ALT/SGPT) 16 U/L (14-59) Alkaline Phosphatase 78 U/L (46-116) Total Protein 7.8 g/dL (6.4-8.2) Albumin 4.0 g/dL (3.4-5.0) Albumin/Globulin Ratio 1.1 (1.0-1.7) Thyroid Stimulating Hormone (TSH) 4.023 uIU/mL (0.358-3.74) Serum Test, Qualitative Negative (NEG) Urine Opiates Screen Neg (NEG) Urine Methadone Screen Neg (NEG) Urine Barbiturates Neg (NEG) Urine Phencyclidine Screen Neg (NEG) Urine Amphetamine/Methamphetamine Neg (NEG) Urine Benzodiazepines Screen Pos (NEG) Urine Cocaine Screen Neg (NEG) Urine Cannabinoids Screen Neg (NEG) Urine Ethyl Alcohol Neg (NEG) O2 Saturation 99 % (92-99) Arterial Blood pH 7.19 (7.35-7.45) Arterial Blood pCO2 at Patient Temp 28 mmHg (35-46) Arterial Blood pO2 at Patient Temp 200 mmHg (85-108) Arterial Blood HCO3 11 mmol/L (21-28) Arterial Blood Base Excess -16 mmol/L (-3-3) FiO2 21 Medications Active Scripts Medications Dose Route/Sig Max Daily Dose Days Date Category Labetalol Hcl 100 Mg Tablet 100 Mg PO DAILY08 03/10/14 Reported Impression . CONSULT DICTATED AGREE WITH CURRENT RX RESP STATUS IS COMPENSATED THANKS KEYLA CLARK MD Aug 27, 2018 08:48
[2018-08-27] MEDS: levETIRAcetam 500 MG in IV DEXTROSE 5% 100ML 100 ML IV SCH ×2 (09:08→21:03)
[2018-08-27] MEDS: HEPARIN for SUB-Q USE 5,000 UNIT/ML VIAL. SQ SCH ×2 (09:09→20:51)
--- NOTE | 2018-08-27 09:11 | CONS ---
DATE OF CONSULTATION: 08/27/2018 ATTENDING PHYSICIAN: Dr. Schwartz. REASON FOR CONSULTATION: The patient seen in pulmonary consultation at the request of Dr. Schwartz for metabolic acidosis. Arterial blood gas; pH of 7.19, pCO2 of 28, pO2 of 200, bicarb of 11. HISTORY OF PRESENT ILLNESS: The patient is a 18-year-old female with a history of renal failure, started on dialysis in 08/10, missed dialysis. She apparently had a seizure, was brought to the Emergency Room. She was seen by Neurology Service. The patient was given Keppra. Started on dialysis, brain MRI. Arterial blood gas was obtained, revealing metabolic acidosis. I was asked to see her. When the patient came in, she also had elevated pressure of 200/116. This morning, the patient is doing well. Her vital signs are relatively stable. She is on no oxygen supplementation, saturation 98%, blood pressure has come down. She is awake, alert, following commands. She is not complaining of being short of breath. No chest pain. No pressure. PAST MEDICAL HISTORY: Remarkable for hypertension and renal failure. PAST SURGICAL HISTORY: No recent major surgeries. FAMILY HISTORY: Hypertension. SOCIAL HISTORY: No history of alcoholism. She does admit to smoking. CURRENT MEDICATIONS: List was reviewed. REVIEW OF SYSTEMS: As indicated above, otherwise the 10-point system was reviewed and negative. CONSTITUTIONAL: No fever or chills. EYES: No change in visual acuity. HEENT: No nasal congestion or sore throat. PULMONARY: As indicated above. CARDIOVASCULAR: No chest pain or pressure. GASTROINTESTINAL: No nausea, vomiting, diarrhea. GENITOURINARY: No dysuria or frequency. MUSCULOSKELETAL: No localized muscle aches or joint pain. SKIN: No skin rashes. PHYSICAL EXAMINATION: VITAL SIGNS: Stable. O2 saturation was greater than 92%. GENERAL: The patient was on room air, in no respiratory distress. NECK: Jugular venous distention was not elevated. No lymphadenopathy. CHEST: Full expansion. LUNGS: Adequate air flow with no wheezes. CARDIOVASCULAR: Regular rate and rhythm with S1, S2; no S3. ABDOMEN: Soft, nontender, nondistended. EXTREMITIES: No clubbing, cyanosis or edema. NEUROLOGIC: The patient was awake, alert, following commands. A detailed neuro exam was not performed. LABORATORY DATA: White count was normal. Hemoglobin and hematocrit were normal. Electrolytes were noted. BUN was elevated, creatinine was elevated. TSH was high. Carbon dioxide was 15 yesterday, this morning is 23. IMPRESSION: 1. Respiratory distress and metabolic acidosis secondary to seizure activity. 2. Seizures per Neurology. 3. Posterior reversible encephalopathy syndrome. 4. Hypertensive emergency. 5. Metabolic/hypertensive encephalopathy. 6. Renal failure. 7. Obesity. 8. Tobacco dependence. PLAN: 1. Respiratory status appears to be compensated. We will monitor. 2. Follow Neurology input. 3. Follow Nephrology input. 4. No further pulmonary workup required. I do appreciate the privilege in sharing in the patient's care. KEYLA CLARK MD DR: SUKHJINDER/isidro JOB#: [id number] / [id number]
--- NOTE | 2018-08-27 09:23 | PDOC2 ---
CONSULT Date of Consult Date of Consult DATE: 08/27/18 TIME: 09:10 Source Source: Chart review, Patient Past Medical History Cardiovascular: HTN Renal/: Chronic renal insuff Past Surgical History Past Surgical History: No pertinent history Family History Family History: Hypertension Social History No ALCOHOL: none Drugs: None Current Problem List Problem List Problems Medical Problems: (1) ESRD (end stage renal disease) on dialysis Status: Acute (2) Recurrent seizures Status: Acute Current Medications Current Medications Current Medications Ondansetron HCl (Zofran) 4 mg 1X ONCE IV Last administered on 08/26/18at 13:45 ; Start 08/26/18 at 13:45; Stop 08/26/18 at 13:46; Status DC Labetalol HCl (Normodyne Iv Push) 10 mg 1X ONCE IVP Last administered on at 13:46; Start 08/26/18 at 13:45; Stop 08/26/18 at 13:46; Status DC Labetalol HCl (Normodyne Iv Push) 20 mg STK-MED ONCE IVP ; Start 08/26/18 at 13: 42; Stop 08/26/18 at 13:43; Status DC Ondansetron HCl (Zofran) 4 mg STK-MED ONCE .ROUTE ; Start 08/26/18 at 13:42; Stop 08/26/18 at 13:43; Status DC Lorazepam (Ativan) 2 mg STK-MED ONCE .ROUTE ; Start 08/26/18 at 14:12; Stop 08/26/18 at 14:13; Status DC Lorazepam (Ativan) 2 mg 1X ONCE IV Last administered on 08/26/18at 14:19; Start 08/26/18 at 14:15; Stop 08/26/18 at 14:16; Status DC Lorazepam (Ativan) 2 mg 1X STAT IV Last administered on 08/26/18at 16:02; Start 08/26/18 at 16:09; Stop 08/26/18 at 16:16; Status DC Lorazepam (Ativan) 2 mg PRN Q4HRS PRN IV ANXIETY / AGITATION; Start 08/26/18 at 17:15 Levetiracetam 750 mg/Dextrose 107.5 ml @ 440 mls/hr 1X ONCE IV Last administered on 08/26/18at 17:42; Start 08/26/18 at 17:30; Stop 08/26/18 at 17:44 ; Status DC Levetiracetam 500 mg/Dextrose 105 ml @ 420 mls/hr Q12HR IV ; Start 08/27/18 at 09:00 Heparin Sodium (Porcine) (Heparin Sodium) 5,000 unit BID SQ Last administered on 08/26/18at 21:40; Start 08/26/18 at 21:00 Labetalol HCl (Normodyne Iv Push) 20 mg 1X ONCE IVP Last administered on at 17:40; Start 08/26/18 at 17:15; Stop 08/26/18 at 17:16; Status DC Lorazepam (Ativan) 2 mg PRN Q2HR PRN IV SEIZURE Last administered on 08/26/18at 17:03; Start 08/26/18 at 17:15 Sodium Bicarbonate (Sodium Bicarb Adult 8.4% Syr) 50 meq STK-MED ONCE .ROUTE ; Start 08/26/18 at 17:34; Stop 08/26/18 at 17:35; Status DC Sodium Bicarbonate (Sodium Bicarb Adult 8.4% Syr) 50 meq 1X ONCE IV Last administered on 08/26/18at 17:41; Start 08/26/18 at 17:45; Stop 08/26/18 at 17:46 ; Status DC Sodium Bicarbonate 50 meq/Sodium Chloride 1,050 ml @ 80 mls/hr Q13H8M IV Last administered on 08/26/18at 17:58; Start 08/26/18 at 18:00; Stop 08/27/18 at 07:07 ; Status DC Sodium Chloride 1,000 ml @ 1,000 mls/hr Q1H PRN IV hypotension; Start 08/26/18 at 17:55; Stop 08/26/18 at 23:54; Status DC Sodium Chloride 1,000 ml @ 400 mls/hr Q2H30M PRN IV PATENCY; Start 08/26/18 at 17:55; Stop 08/27/18 at 05:54; Status DC Info (PHARMACY MONITORING -- do not chart) 1 each PRN DAILY PRN MC SEE COMMENTS ; Start 08/26/18 at 18:00; Status UNV Info (PHARMACY MONITORING -- do not chart) 1 each PRN DAILY PRN MC SEE COMMENTS ; Start 08/26/18 at 18:00 Nicardipine HCl 50 mg/Sodium Chloride 270 ml @ 27 mls/hr CONT PRN IV SEE I/O RECORD Last administered on 08/27/18at 08:46; Start 08/26/18 at 18:15 Influenza Virus Vaccine (Afluria Trivalent [id number] Syringe) 0.5 ml ONCE ONCE VAX IM ; Start 08/26/18 at 18:45; Stop 08/26/18 at 18:46; Status DC Acetaminophen/ Hydrocodone Bitart (Lortab 5/325) 1 tab PRN Q4HRS PRN PO PAIN Last administered on 08/27/18at 01:54; Start 08/27/18 at 01:45 Metoprolol Tartrate (Lopressor Vial) 5 mg PRN Q4HRS PRN IVP HYPERTENSION, SEE COMMENTS Last administered on 08/27/18at 01:54; Start 08/27/18 at 01:45 Active Scripts Active Reported Labetalol Hcl 100 Mg Tablet 100 Mg PO DAILY08 Allergies Allergies: Coded Allergies: No Known Drug Allergies (Unverified , 03/10/14) ROS Review of System GEN: [ ] Fevers [ ] Chills EYES: [ ] Visual Complaints ENT: [ ] EN Drainage [ ] Hearing deficiets CVS: [ ] Orthopnea [ ] CP RESP: [ ] SOB [ ] BERRIOS GI: [ ] Nausea [ ] Vomiting : [ ] Dysuria [ ] Urgency HEME: [ ] easy bruising [ ] Palp Ly Nodes NEURO [ ] Focal Weakness [ ] Sz PSYCH: [ ] Suicidal Ideation [ ] Depression SKIN: [ ] Rashes ENDO: [ ] Polyuria or Polydipsia [ ] Hot/Cold Intolerance MU SK: [ ] Arthraigia [ ] Myalgia Physical Exam Physical Exam GEN: Awake, Oriented x [], In [] distress EYES: Vision Unchanged, Conjunctiva Normal EN: No EN Drainage, Mucous Membranes [] NECK: [] JVD, [] JVP, Supple, [] Thyromegaly CVS: S1S2, [] Murmur, No Gallop, No Rub,[] Edema RESP: [] Rales, [] Rhonchi,[] Acc. Muscle Use GI: BS + ve, NO Bruit, Non Tender, Non Distended : [] CVA tenderness, [] Suprapubic Tenderness Vital Signs Vital Signs Date Time Temp Pulse Resp B/P (MAP) Pulse Ox O2 Delivery O2 Flow Rate FiO2 08/27/18 07:00 104 16 144/79 (100) 98 Room Air 08/27/18 04:00 98.2 98.2 08/27/18 01:00 Assessment & Plan ESRD.ARF: Current FLuid and E-lyte status does not necessitate emergent need for Dialysis. Will re-evaluate for Dialysis in am and continue on [ ] schedule. Anemia: [ ] Epogen [ ] Transfuse [ ] with next HD as needed. HTN: Current BP meds reviewed. See orders for changes. Bone & Mineral: [ ] Discussed Plan of Care and prognosis etc. at length with family. Labs Labs Laboratory Tests Test 08/26/18 13:00 08/26/18 14:10 08/26/18 17:14 08/27/18 04:35 White Blood Count 10.0 x10^3/uL (4.0-11.0) 7.3 x10^3/uL (4.0-11.0) Red Blood Count 4.24 x10^6/uL (3.50-5.40) 4.14 x10^6/uL (3.50-5.40) Hemoglobin 13.1 g/dL (12.0-15.5) 12.6 g/dL (12.0-15.5) Hematocrit 38.9 % (36.0-47.0) 37.3 % (36.0-47.0) Mean Corpuscular Volume 92 fL (79-100) 90 fL (79-100) Mean Corpuscular Hemoglobin 31 pg (25-35) 31 pg (25-35) Mean Corpuscular Hemoglobin Concent 34 g/dL (31-37) 34 g/dL (31-37) Red Cell Distribution Width 16.3 % (11.5-14.5) 16.4 % (11.5-14.5) Platelet Count 215 x10^3/uL (140-400) 226 x10^3/uL (140-400) Neutrophils (%) (Auto) 94 % (31-73) 84 % (31-73) Lymphocytes (%) (Auto) 4 % (24-48) 11 % (24-48) Monocytes (%) (Auto) 2 % (0-9) 4 % (0-9) Eosinophils (%) (Auto) 0 % (0-3) 0 % (0-3) Basophils (%) (Auto) 0 % (0-3) 1 % (0-3) Neutrophils # (Auto) 9.3 x10^3uL (1.8-7.7) 6.1 x10^3uL (1.8-7.7) Lymphocytes # (Auto) 0.4 x10^3/uL (1.0-4.8) 0.8 x10^3/uL (1.0-4.8) Monocytes # (Auto) 0.2 x10^3/uL (0.0-1.1) 0.3 x10^3/uL (0.0-1.1) Eosinophils # (Auto) 0.0 x10^3/uL (0.0-0.7) 0.0 x10^3/uL (0.0-0.7) Basophils # (Auto) 0.0 x10^3/uL (0.0-0.2) 0.0 x10^3/uL (0.0-0.2) Segmented Neutrophils % 92 % (35-66) Band Neutrophils % 1 % (0-9) Lymphocytes % 5 % (24-48) Monocytes % 1 % (0-10) Basophils % 1 % (0-3) Platelet Estimate Adequate (ADEQUATE) Anisocytosis Slight Sodium Level 137 mmol/L (136-145) 138 mmol/L (136-145) Potassium Level 4.9 mmol/L (3.5-5.1) 3.8 mmol/L (3.5-5.1) Chloride Level 100 mmol/L (98-107) 100 mmol/L (98-107) Carbon Dioxide Level 15 mmol/L (21-32) 23 mmol/L (21-32) Anion Gap 22 (6-14) 15 (6-14) Blood Urea Nitrogen 148 mg/dL (7-20) 68 mg/dL (7-20) Creatinine 19.3 mg/dL (0.6-1.0) 13.0 mg/dL (0.6-1.0) Estimated GFR (Cockcroft-Gault) 2.3 3.7 BUN/Creatinine Ratio 8 (6-20) Glucose Level 90 mg/dL (70-99) 99 mg/dL (70-99) Calcium Level 8.7 mg/dL (8.5-10.1) 9.2 mg/dL (8.5-10.1) Phosphorus Level 10.3 mg/dL (2.6-4.7) Magnesium Level 2.9 mg/dL (1.8-2.4) Total Bilirubin 0.4 mg/dL (0.2-1.0) Aspartate Amino Transf (AST/SGOT) 13 U/L (15-37) Alanine Aminotransferase (ALT/SGPT) 16 U/L (14-59) Alkaline Phosphatase 78 U/L (46-116) Total Protein 7.8 g/dL (6.4-8.2) Albumin 4.0 g/dL (3.4-5.0) Albumin/Globulin Ratio 1.1 (1.0-1.7) Thyroid Stimulating Hormone (TSH) 4.023 uIU/mL (0.358-3.74) Serum Test, Qualitative Negative (NEG) Urine Opiates Screen Neg (NEG) Urine Methadone Screen Neg (NEG) Urine Barbiturates Neg (NEG) Urine Phencyclidine Screen Neg (NEG) Urine Amphetamine/Methamphetamine Neg (NEG) Urine Benzodiazepines Screen Pos (NEG) Urine Cocaine Screen Neg (NEG) Urine Cannabinoids Screen Neg (NEG) Urine Ethyl Alcohol Neg (NEG) O2 Saturation 99 % (92-99) Arterial Blood pH 7.19 (7.35-7.45) Arterial Blood pCO2 at Patient Temp 28 mmHg (35-46) Arterial Blood pO2 at Patient Temp 200 mmHg (85-108) Arterial Blood HCO3 11 mmol/L (21-28) Arterial Blood Base Excess -16 mmol/L (-3-3) FiO2 21 Laboratory Tests Test 08/26/18 13:00 08/26/18 14:10 08/26/18 17:14 08/27/18 04:35 White Blood Count 10.0 x10^3/uL (4.0-11.0) 7.3 x10^3/uL (4.0-11.0) Red Blood Count 4.24 x10^6/uL (3.50-5.40) 4.14 x10^6/uL (3.50-5.40) Hemoglobin 13.1 g/dL (12.0-15.5) 12.6 g/dL (12.0-15.5) Hematocrit 38.9 % (36.0-47.0) 37.3 % (36.0-47.0) Mean Corpuscular Volume 92 fL (79-100) 90 fL (79-100) Mean Corpuscular Hemoglobin 31 pg (25-35) 31 pg (25-35) Mean Corpuscular Hemoglobin Concent 34 g/dL (31-37) 34 g/dL (31-37) Red Cell Distribution Width 16.3 % (11.5-14.5) 16.4 % (11.5-14.5) Platelet Count 215 x10^3/uL (140-400) 226 x10^3/uL (140-400) Neutrophils (%) (Auto) 94 % (31-73) 84 % (31-73) Lymphocytes (%) (Auto) 4 % (24-48) 11 % (24-48) Monocytes (%) (Auto) 2 % (0-9) 4 % (0-9) Eosinophils (%) (Auto) 0 % (0-3) 0 % (0-3) Basophils (%) (Auto) 0 % (0-3) 1 % (0-3) Neutrophils # (Auto) 9.3 x10^3uL (1.8-7.7) 6.1 x10^3uL (1.8-7.7) Lymphocytes # (Auto) 0.4 x10^3/uL (1.0-4.8) 0.8 x10^3/uL (1.0-4.8) Monocytes # (Auto) 0.2 x10^3/uL (0.0-1.1) 0.3 x10^3/uL (0.0-1.1) Eosinophils # (Auto) 0.0 x10^3/uL (0.0-0.7) 0.0 x10^3/uL (0.0-0.7) Basophils # (Auto) 0.0 x10^3/uL (0.0-0.2) 0.0 x10^3/uL (0.0-0.2) Segmented Neutrophils % 92 % (35-66) Band Neutrophils % 1 % (0-9) Lymphocytes % 5 % (24-48) Monocytes % 1 % (0-10) Basophils % 1 % (0-3) Platelet Estimate Adequate (ADEQUATE) Anisocytosis Slight Sodium Level 137 mmol/L (136-145) 138 mmol/L (136-145) Potassium Level 4.9 mmol/L (3.5-5.1) 3.8 mmol/L (3.5-5.1) Chloride Level 100 mmol/L (98-107) 100 mmol/L (98-107) Carbon Dioxide Level 15 mmol/L (21-32) 23 mmol/L (21-32) Anion Gap 22 (6-14) 15 (6-14) Blood Urea Nitrogen 148 mg/dL (7-20) 68 mg/dL (7-20) Creatinine 19.3 mg/dL (0.6-1.0) 13.0 mg/dL (0.6-1.0) Estimated GFR (Cockcroft-Gault) 2.3 3.7 BUN/Creatinine Ratio 8 (6-20) Glucose Level 90 mg/dL (70-99) 99 mg/dL (70-99) Calcium Level 8.7 mg/dL (8.5-10.1) 9.2 mg/dL (8.5-10.1) Phosphorus Level 10.3 mg/dL (2.6-4.7) Magnesium Level 2.9 mg/dL (1.8-2.4) Total Bilirubin 0.4 mg/dL (0.2-1.0) Aspartate Amino Transf (AST/SGOT) 13 U/L (15-37) Alanine Aminotransferase (ALT/SGPT) 16 U/L (14-59) Alkaline Phosphatase 78 U/L (46-116) Total Protein 7.8 g/dL (6.4-8.2) Albumin 4.0 g/dL (3.4-5.0) Albumin/Globulin Ratio 1.1 (1.0-1.7) Thyroid Stimulating Hormone (TSH) 4.023 uIU/mL (0.358-3.74) Serum Test, Qualitative Negative (NEG) Urine Opiates Screen Neg (NEG) Urine Methadone Screen Neg (NEG) Urine Barbiturates Neg (NEG) Urine Phencyclidine Screen Neg (NEG) Urine Amphetamine/Methamphetamine Neg (NEG) Urine Benzodiazepines Screen Pos (NEG) Urine Cocaine Screen Neg (NEG) Urine Cannabinoids Screen Neg (NEG) Urine Ethyl Alcohol Neg (NEG) O2 Saturation 99 % (92-99) Arterial Blood pH 7.19 (7.35-7.45) Arterial Blood pCO2 at Patient Temp 28 mmHg (35-46) Arterial Blood pO2 at Patient Temp 200 mmHg (85-108) Arterial Blood HCO3 11 mmol/L (21-28) Arterial Blood Base Excess -16 mmol/L (-3-3) FiO2 21 Review All relevant outside records, renal labs, imaging studies, telemetry/EKG's were reviewed. CONNER BUSTOS MD Aug 27, 2018 09:23
--- NOTE | 2018-08-27 10:07 | PDOC2 ---
CONSULT Date of Consult Date of Consult DATE: 08/27/18 TIME: 09:45 Reason for Consult Reason for Consult: ESRD, Missed HD Identification/Chief Complaint Chief Complaint Hospitalized with c/o seizures Source Source: Chart review, Patient History of Present Illness Reason for Visit: Pt is 18-y-old female patient ESRD has been on HD since 2016 , she states she missed many treatments recently as she didnt wanted to HD , as per RN (Hx Obtained from her Mother) her last HD was on 08/15 . She is MWF at [employer]. She claims that she has missed treatments off and on in the past but not for prolonged period. She had a seizure and was brought to the ER. As per ER Provider she was in post ictal phase on arrival. She was admitted to to the floor as being deemed stable by ER provider. She had more seizures on the floor as well and was transferred to ICU. She had a seizure about 4 months ago and was seen in [facility] thought was related to UTI. 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 She was getting evaluated for Tx but states as she had gone to [facility]- she is not sure what is the current status She claims she has very good UOP (though oliguric since hospitalization) Denies any N/V. Reports mouth feeling dry. No SOB or CP, No F/C /Headache . Denies any symptoms of UTI She Lives with her mother and her 4 year son,Denies smoking, drinking, and illicit drug use. Denies any FHx of Renal problems Past Medical History Cardiovascular: HTN Renal/: Chronic renal insuff Past Surgical History Past Surgical History: No pertinent history Family History Family History: Hypertension Social History No ALCOHOL: none Drugs: None Current Problem List Problem List Problems Medical Problems: (1) ESRD (end stage renal disease) on dialysis Status: Acute (2) Recurrent seizures Status: Acute Current Medications Current Medications Current Medications Ondansetron HCl (Zofran) 4 mg 1X ONCE IV Last administered on 08/26/18at 13:45 ; Start 08/26/18 at 13:45; Stop 08/26/18 at 13:46; Status DC Labetalol HCl (Normodyne Iv Push) 10 mg 1X ONCE IVP Last administered on at 13:46; Start 08/26/18 at 13:45; Stop 08/26/18 at 13:46; Status DC Labetalol HCl (Normodyne Iv Push) 20 mg STK-MED ONCE IVP ; Start 08/26/18 at 13: 42; Stop 08/26/18 at 13:43; Status DC Ondansetron HCl (Zofran) 4 mg STK-MED ONCE .ROUTE ; Start 08/26/18 at 13:42; Stop 08/26/18 at 13:43; Status DC Lorazepam (Ativan) 2 mg STK-MED ONCE .ROUTE ; Start 08/26/18 at 14:12; Stop 08/26/18 at 14:13; Status DC Lorazepam (Ativan) 2 mg 1X ONCE IV Last administered on 08/26/18at 14:19; Start 08/26/18 at 14:15; Stop 08/26/18 at 14:16; Status DC Lorazepam (Ativan) 2 mg 1X STAT IV Last administered on 08/26/18at 16:02; Start 08/26/18 at 16:09; Stop 08/26/18 at 16:16; Status DC Lorazepam (Ativan) 2 mg PRN Q4HRS PRN IV ANXIETY / AGITATION; Start 08/26/18 at 17:15 Levetiracetam 750 mg/Dextrose 107.5 ml @ 440 mls/hr 1X ONCE IV Last administered on 08/26/18at 17:42; Start 08/26/18 at 17:30; Stop 08/26/18 at 17:44 ; Status DC Levetiracetam 500 mg/Dextrose 105 ml @ 420 mls/hr Q12HR IV Last administered on 08/27/18at 09:08; Start 08/27/18 at 09:00 Heparin Sodium (Porcine) (Heparin Sodium) 5,000 unit BID SQ Last administered on 08/27/18at 09:09; Start 08/26/18 at 21:00 Labetalol HCl (Normodyne Iv Push) 20 mg 1X ONCE IVP Last administered on at 17:40; Start 08/26/18 at 17:15; Stop 08/26/18 at 17:16; Status DC Lorazepam (Ativan) 2 mg PRN Q2HR PRN IV SEIZURE Last administered on 08/26/18at 17:03; Start 08/26/18 at 17:15 Sodium Bicarbonate (Sodium Bicarb Adult 8.4% Syr) 50 meq STK-MED ONCE .ROUTE ; Start 08/26/18 at 17:34; Stop 08/26/18 at 17:35; Status DC Sodium Bicarbonate (Sodium Bicarb Adult 8.4% Syr) 50 meq 1X ONCE IV Last administered on 08/26/18at 17:41; Start 08/26/18 at 17:45; Stop 08/26/18 at 17:46 ; Status DC Sodium Bicarbonate 50 meq/Sodium Chloride 1,050 ml @ 80 mls/hr Q13H8M IV Last administered on 08/26/18at 17:58; Start 08/26/18 at 18:00; Stop 08/27/18 at 07:07 ; Status DC Sodium Chloride 1,000 ml @ 1,000 mls/hr Q1H PRN IV hypotension; Start 08/26/18 at 17:55; Stop 08/26/18 at 23:54; Status DC Sodium Chloride 1,000 ml @ 400 mls/hr Q2H30M PRN IV PATENCY; Start 08/26/18 at 17:55; Stop 08/27/18 at 05:54; Status DC Info (PHARMACY MONITORING -- do not chart) 1 each PRN DAILY PRN MC SEE COMMENTS ; Start 08/26/18 at 18:00; Status UNV Info (PHARMACY MONITORING -- do not chart) 1 each PRN DAILY PRN MC SEE COMMENTS ; Start 08/26/18 at 18:00 Nicardipine HCl 50 mg/Sodium Chloride 270 ml @ 27 mls/hr CONT PRN IV SEE I/O RECORD Last administered on 08/27/18at 08:46; Start 08/26/18 at 18:15 Influenza Virus Vaccine (Afluria Trivalent [id number] Syringe) 0.5 ml ONCE ONCE VAX IM ; Start 08/26/18 at 18:45; Stop 08/26/18 at 18:46; Status DC Acetaminophen/ Hydrocodone Bitart (Lortab 5/325) 1 tab PRN Q4HRS PRN PO PAIN Last administered on 08/27/18at 01:54; Start 08/27/18 at 01:45 Metoprolol Tartrate (Lopressor Vial) 5 mg PRN Q4HRS PRN IVP HYPERTENSION, SEE COMMENTS Last administered on 08/27/18at 01:54; Start 08/27/18 at 01:45 Active Scripts Active Reported Labetalol Hcl 100 Mg Tablet 100 Mg PO DAILY08 Allergies Allergies: Coded Allergies: No Known Drug Allergies (Unverified , 03/10/14) ROS Review of System As per HPI Physical Exam Physical Exam General appearance - NAD HEENT: OM Dry Neck - Supple Cardiovascular: S1, S2, regular rate and rhythm. Pulmonary: Clear to auscultation bilaterally, Non labored Abdomen: Soft, NT Extremities:No edema. - Titus + Neuro- AxO x 3, (rest as per Neurologist exam) Vital Signs Vital Signs Date Time Temp Pulse Resp B/P (MAP) Pulse Ox O2 Delivery O2 Flow Rate FiO2 08/27/18 09:00 128 18 154/67 (96) 100 Room Air 08/27/18 08:00 98.2 98.2 08/27/18 01:00 Assessment & Plan ESRD- MWF at [facility] Missed multiple treatments Hospitalized with Azotemia, Seizures- emergent Dialysis Yesterday Labs stable today, BUN significantly lowered , will hold off today,schedule for tomorrow Bladder scan today- dw RN Seizures- Neurology following MRI today (without Contrast) as per Neuro HTN-Not on any antihypertensives as per Pt Currently on Cardene drip Hyperphosphatemia- sec to ESRD/Missing HD Recheck in am Discussed with Pt and RN, No family in the room Labs Labs Laboratory Tests Test 08/26/18 13:00 08/26/18 14:10 08/26/18 17:14 08/27/18 04:35 White Blood Count 10.0 x10^3/uL (4.0-11.0) 7.3 x10^3/uL (4.0-11.0) Red Blood Count 4.24 x10^6/uL (3.50-5.40) 4.14 x10^6/uL (3.50-5.40) Hemoglobin 13.1 g/dL (12.0-15.5) 12.6 g/dL (12.0-15.5) Hematocrit 38.9 % (36.0-47.0) 37.3 % (36.0-47.0) Mean Corpuscular Volume 92 fL (79-100) 90 fL (79-100) Mean Corpuscular Hemoglobin 31 pg (25-35) 31 pg (25-35) Mean Corpuscular Hemoglobin Concent 34 g/dL (31-37) 34 g/dL (31-37) Red Cell Distribution Width 16.3 % (11.5-14.5) 16.4 % (11.5-14.5) Platelet Count 215 x10^3/uL (140-400) 226 x10^3/uL (140-400) Neutrophils (%) (Auto) 94 % (31-73) 84 % (31-73) Lymphocytes (%) (Auto) 4 % (24-48) 11 % (24-48) Monocytes (%) (Auto) 2 % (0-9) 4 % (0-9) Eosinophils (%) (Auto) 0 % (0-3) 0 % (0-3) Basophils (%) (Auto) 0 % (0-3) 1 % (0-3) Neutrophils # (Auto) 9.3 x10^3uL (1.8-7.7) 6.1 x10^3uL (1.8-7.7) Lymphocytes # (Auto) 0.4 x10^3/uL (1.0-4.8) 0.8 x10^3/uL (1.0-4.8) Monocytes # (Auto) 0.2 x10^3/uL (0.0-1.1) 0.3 x10^3/uL (0.0-1.1) Eosinophils # (Auto) 0.0 x10^3/uL (0.0-0.7) 0.0 x10^3/uL (0.0-0.7) Basophils # (Auto) 0.0 x10^3/uL (0.0-0.2) 0.0 x10^3/uL (0.0-0.2) Segmented Neutrophils % 92 % (35-66) Band Neutrophils % 1 % (0-9) Lymphocytes % 5 % (24-48) Monocytes % 1 % (0-10) Basophils % 1 % (0-3) Platelet Estimate Adequate (ADEQUATE) Anisocytosis Slight Sodium Level 137 mmol/L (136-145) 138 mmol/L (136-145) Potassium Level 4.9 mmol/L (3.5-5.1) 3.8 mmol/L (3.5-5.1) Chloride Level 100 mmol/L (98-107) 100 mmol/L (98-107) Carbon Dioxide Level 15 mmol/L (21-32) 23 mmol/L (21-32) Anion Gap 22 (6-14) 15 (6-14) Blood Urea Nitrogen 148 mg/dL (7-20) 68 mg/dL (7-20) Creatinine 19.3 mg/dL (0.6-1.0) 13.0 mg/dL (0.6-1.0) Estimated GFR (Cockcroft-Gault) 2.3 3.7 BUN/Creatinine Ratio 8 (6-20) Glucose Level 90 mg/dL (70-99) 99 mg/dL (70-99) Calcium Level 8.7 mg/dL (8.5-10.1) 9.2 mg/dL (8.5-10.1) Phosphorus Level 10.3 mg/dL (2.6-4.7) Magnesium Level 2.9 mg/dL (1.8-2.4) Total Bilirubin 0.4 mg/dL (0.2-1.0) Aspartate Amino Transf (AST/SGOT) 13 U/L (15-37) Alanine Aminotransferase (ALT/SGPT) 16 U/L (14-59) Alkaline Phosphatase 78 U/L (46-116) Total Protein 7.8 g/dL (6.4-8.2) Albumin 4.0 g/dL (3.4-5.0) Albumin/Globulin Ratio 1.1 (1.0-1.7) Thyroid Stimulating Hormone (TSH) 4.023 uIU/mL (0.358-3.74) Serum Test, Qualitative Negative (NEG) Urine Opiates Screen Neg (NEG) Urine Methadone Screen Neg (NEG) Urine Barbiturates Neg (NEG) Urine Phencyclidine Screen Neg (NEG) Urine Amphetamine/Methamphetamine Neg (NEG) Urine Benzodiazepines Screen Pos (NEG) Urine Cocaine Screen Neg (NEG) Urine Cannabinoids Screen Neg (NEG) Urine Ethyl Alcohol Neg (NEG) O2 Saturation 99 % (92-99) Arterial Blood pH 7.19 (7.35-7.45) Arterial Blood pCO2 at Patient Temp 28 mmHg (35-46) Arterial Blood pO2 at Patient Temp 200 mmHg (85-108) Arterial Blood HCO3 11 mmol/L (21-28) Arterial Blood Base Excess -16 mmol/L (-3-3) FiO2 21 Laboratory Tests Test 08/26/18 13:00 08/26/18 14:10 08/26/18 17:14 08/27/18 04:35 White Blood Count 10.0 x10^3/uL (4.0-11.0) 7.3 x10^3/uL (4.0-11.0) Red Blood Count 4.24 x10^6/uL (3.50-5.40) 4.14 x10^6/uL (3.50-5.40) Hemoglobin 13.1 g/dL (12.0-15.5) 12.6 g/dL (12.0-15.5) Hematocrit 38.9 % (36.0-47.0) 37.3 % (36.0-47.0) Mean Corpuscular Volume 92 fL (79-100) 90 fL (79-100) Mean Corpuscular Hemoglobin 31 pg (25-35) 31 pg (25-35) Mean Corpuscular Hemoglobin Concent 34 g/dL (31-37) 34 g/dL (31-37) Red Cell Distribution Width 16.3 % (11.5-14.5) 16.4 % (11.5-14.5) Platelet Count 215 x10^3/uL (140-400) 226 x10^3/uL (140-400) Neutrophils (%) (Auto) 94 % (31-73) 84 % (31-73) Lymphocytes (%) (Auto) 4 % (24-48) 11 % (24-48) Monocytes (%) (Auto) 2 % (0-9) 4 % (0-9) Eosinophils (%) (Auto) 0 % (0-3) 0 % (0-3) Basophils (%) (Auto) 0 % (0-3) 1 % (0-3) Neutrophils # (Auto) 9.3 x10^3uL (1.8-7.7) 6.1 x10^3uL (1.8-7.7) Lymphocytes # (Auto) 0.4 x10^3/uL (1.0-4.8) 0.8 x10^3/uL (1.0-4.8) Monocytes # (Auto) 0.2 x10^3/uL (0.0-1.1) 0.3 x10^3/uL (0.0-1.1) Eosinophils # (Auto) 0.0 x10^3/uL (0.0-0.7) 0.0 x10^3/uL (0.0-0.7) Basophils # (Auto) 0.0 x10^3/uL (0.0-0.2) 0.0 x10^3/uL (0.0-0.2) Segmented Neutrophils % 92 % (35-66) Band Neutrophils % 1 % (0-9) Lymphocytes % 5 % (24-48) Monocytes % 1 % (0-10) Basophils % 1 % (0-3) Platelet Estimate Adequate (ADEQUATE) Anisocytosis Slight Sodium Level 137 mmol/L (136-145) 138 mmol/L (136-145) Potassium Level 4.9 mmol/L (3.5-5.1) 3.8 mmol/L (3.5-5.1) Chloride Level 100 mmol/L (98-107) 100 mmol/L (98-107) Carbon Dioxide Level 15 mmol/L (21-32) 23 mmol/L (21-32) Anion Gap 22 (6-14) 15 (6-14) Blood Urea Nitrogen 148 mg/dL (7-20) 68 mg/dL (7-20) Creatinine 19.3 mg/dL (0.6-1.0) 13.0 mg/dL (0.6-1.0) Estimated GFR (Cockcroft-Gault) 2.3 3.7 BUN/Creatinine Ratio 8 (6-20) Glucose Level 90 mg/dL (70-99) 99 mg/dL (70-99) Calcium Level 8.7 mg/dL (8.5-10.1) 9.2 mg/dL (8.5-10.1) Phosphorus Level 10.3 mg/dL (2.6-4.7) Magnesium Level 2.9 mg/dL (1.8-2.4) Total Bilirubin 0.4 mg/dL (0.2-1.0) Aspartate Amino Transf (AST/SGOT) 13 U/L (15-37) Alanine Aminotransferase (ALT/SGPT) 16 U/L (14-59) Alkaline Phosphatase 78 U/L (46-116) Total Protein 7.8 g/dL (6.4-8.2) Albumin 4.0 g/dL (3.4-5.0) Albumin/Globulin Ratio 1.1 (1.0-1.7) Thyroid Stimulating Hormone (TSH) 4.023 uIU/mL (0.358-3.74) Serum Test, Qualitative Negative (NEG) Urine Opiates Screen Neg (NEG) Urine Methadone Screen Neg (NEG) Urine Barbiturates Neg (NEG) Urine Phencyclidine Screen Neg (NEG) Urine Amphetamine/Methamphetamine Neg (NEG) Urine Benzodiazepines Screen Pos (NEG) Urine Cocaine Screen Neg (NEG) Urine Cannabinoids Screen Neg (NEG) Urine Ethyl Alcohol Neg (NEG) O2 Saturation 99 % (92-99) Arterial Blood pH 7.19 (7.35-7.45) Arterial Blood pCO2 at Patient Temp 28 mmHg (35-46) Arterial Blood pO2 at Patient Temp 200 mmHg (85-108) Arterial Blood HCO3 11 mmol/L (21-28) Arterial Blood Base Excess -16 mmol/L (-3-3) FiO2 21 Review All relevant outside records, renal labs, imaging studies, telemetry/EKG's were reviewed. CONNER BUSTOS MD Aug 27, 2018 10:07
[2018-08-27] MEDS ORDERED: ONDANSETRON PF 4 MG/2 ML VIAL. IV PRN (12:00)
--- NOTE | 2018-08-27 12:54 | PDOC ---
PROGRESS NOTES Chief Complaint Chief Complaint Seizure ESRD History of Present Illness History of Present Illness Pt was seen and examined at bedside in ICU with her mother in the room. She is a pleasant young woman with new onset of seizures starting 4 months ago and is on dialysis for ESRD. Neuro is following the case and has started her on Keppra. EEG and MRI of the brain are scheduled either today or tomorrow. Pt was given 4 IV q6 of Zofran for nausea and PO diltiazem 30 po q6 PRN for rate and pressure control. Vitals Vitals Vital Signs Date Time Temp Pulse Resp B/P (MAP) Pulse Ox O2 Delivery O2 Flow Rate FiO2 08/27/18 12:00 98.4 86 18 147/79 (101) 100 Room Air 98.4 08/27/18 01:00 Physical Exam General: Alert, Oriented X3, Cooperative, No acute distress Heart: Regular rate, Normal S1, Normal S2 Lungs: Clear, Other (no crackles or wheezes) Abdomen: Normal bowel sounds, Soft, No tenderness Extremities: No clubbing, No cyanosis, Other (palpable thrill L radial pulse) Skin: No breakdown, No significant lesion Labs LABS Laboratory Tests Test 08/26/18 13:00 08/26/18 14:10 08/26/18 17:14 08/27/18 04:35 White Blood Count 10.0 x10^3/uL (4.0-11.0) 7.3 x10^3/uL (4.0-11.0) Red Blood Count 4.24 x10^6/uL (3.50-5.40) 4.14 x10^6/uL (3.50-5.40) Hemoglobin 13.1 g/dL (12.0-15.5) 12.6 g/dL (12.0-15.5) Hematocrit 38.9 % (36.0-47.0) 37.3 % (36.0-47.0) Mean Corpuscular Volume 92 fL (79-100) 90 fL (79-100) Mean Corpuscular Hemoglobin 31 pg (25-35) 31 pg (25-35) Mean Corpuscular Hemoglobin Concent 34 g/dL (31-37) 34 g/dL (31-37) Red Cell Distribution Width 16.3 % (11.5-14.5) 16.4 % (11.5-14.5) Platelet Count 215 x10^3/uL (140-400) 226 x10^3/uL (140-400) Neutrophils (%) (Auto) 94 % (31-73) 84 % (31-73) Lymphocytes (%) (Auto) 4 % (24-48) 11 % (24-48) Monocytes (%) (Auto) 2 % (0-9) 4 % (0-9) Eosinophils (%) (Auto) 0 % (0-3) 0 % (0-3) Basophils (%) (Auto) 0 % (0-3) 1 % (0-3) Neutrophils # (Auto) 9.3 x10^3uL (1.8-7.7) 6.1 x10^3uL (1.8-7.7) Lymphocytes # (Auto) 0.4 x10^3/uL (1.0-4.8) 0.8 x10^3/uL (1.0-4.8) Monocytes # (Auto) 0.2 x10^3/uL (0.0-1.1) 0.3 x10^3/uL (0.0-1.1) Eosinophils # (Auto) 0.0 x10^3/uL (0.0-0.7) 0.0 x10^3/uL (0.0-0.7) Basophils # (Auto) 0.0 x10^3/uL (0.0-0.2) 0.0 x10^3/uL (0.0-0.2) Segmented Neutrophils % 92 % (35-66) Band Neutrophils % 1 % (0-9) Lymphocytes % 5 % (24-48) Monocytes % 1 % (0-10) Basophils % 1 % (0-3) Platelet Estimate Adequate (ADEQUATE) Anisocytosis Slight Sodium Level 137 mmol/L (136-145) 138 mmol/L (136-145) Potassium Level 4.9 mmol/L (3.5-5.1) 3.8 mmol/L (3.5-5.1) Chloride Level 100 mmol/L (98-107) 100 mmol/L (98-107) Carbon Dioxide Level 15 mmol/L (21-32) 23 mmol/L (21-32) Anion Gap 22 (6-14) 15 (6-14) Blood Urea Nitrogen 148 mg/dL (7-20) 68 mg/dL (7-20) Creatinine 19.3 mg/dL (0.6-1.0) 13.0 mg/dL (0.6-1.0) Estimated GFR (Cockcroft-Gault) 2.3 3.7 BUN/Creatinine Ratio 8 (6-20) Glucose Level 90 mg/dL (70-99) 99 mg/dL (70-99) Calcium Level 8.7 mg/dL (8.5-10.1) 9.2 mg/dL (8.5-10.1) Phosphorus Level 10.3 mg/dL (2.6-4.7) Magnesium Level 2.9 mg/dL (1.8-2.4) Total Bilirubin 0.4 mg/dL (0.2-1.0) Aspartate Amino Transf (AST/SGOT) 13 U/L (15-37) Alanine Aminotransferase (ALT/SGPT) 16 U/L (14-59) Alkaline Phosphatase 78 U/L (46-116) Total Protein 7.8 g/dL (6.4-8.2) Albumin 4.0 g/dL (3.4-5.0) Albumin/Globulin Ratio 1.1 (1.0-1.7) Thyroid Stimulating Hormone (TSH) 4.023 uIU/mL (0.358-3.74) Serum Test, Qualitative Negative (NEG) Urine Opiates Screen Neg (NEG) Urine Methadone Screen Neg (NEG) Urine Barbiturates Neg (NEG) Urine Phencyclidine Screen Neg (NEG) Urine Amphetamine/Methamphetamine Neg (NEG) Urine Benzodiazepines Screen Pos (NEG) Urine Cocaine Screen Neg (NEG) Urine Cannabinoids Screen Neg (NEG) Urine Ethyl Alcohol Neg (NEG) O2 Saturation 99 % (92-99) Arterial Blood pH 7.19 (7.35-7.45) Arterial Blood pCO2 at Patient Temp 28 mmHg (35-46) Arterial Blood pO2 at Patient Temp 200 mmHg (85-108) Arterial Blood HCO3 11 mmol/L (21-28) Arterial Blood Base Excess -16 mmol/L (-3-3) FiO2 21 Review of Systems Review of Systems GENERAL: No unexpected wt loss, fever/chills CV: No chest pain, palpitations PULM: Yes sob, no cough GI: Yes nausea Assessment and Plan Assessmemt and Plan ASSESSMENT: ESRD (end stage renal disease) on dialysis Recurrent seizures PLAN: 4 IV Q6 of zofran prescribed for Nausea PO Diltiazem 30 po q6 PRN for rate and pressure control Recheck labs in am Home meds Neuro started pt on Keppra Continue ICU Monitoring Consult PT/OT Subspecialty input appreciated Comment Review of Relevant I have reviewed the following items tavia (where applicable) has been applied. Labs Laboratory Tests Test 08/26/18 13:00 08/26/18 14:10 08/26/18 17:14 08/27/18 04:35 White Blood Count 10.0 x10^3/uL (4.0-11.0) 7.3 x10^3/uL (4.0-11.0) Red Blood Count 4.24 x10^6/uL (3.50-5.40) 4.14 x10^6/uL (3.50-5.40) Hemoglobin 13.1 g/dL (12.0-15.5) 12.6 g/dL (12.0-15.5) Hematocrit 38.9 % (36.0-47.0) 37.3 % (36.0-47.0) Mean Corpuscular Volume 92 fL (79-100) 90 fL (79-100) Mean Corpuscular Hemoglobin 31 pg (25-35) 31 pg (25-35) Mean Corpuscular Hemoglobin Concent 34 g/dL (31-37) 34 g/dL (31-37) Red Cell Distribution Width 16.3 % (11.5-14.5) 16.4 % (11.5-14.5) Platelet Count 215 x10^3/uL (140-400) 226 x10^3/uL (140-400) Neutrophils (%) (Auto) 94 % (31-73) 84 % (31-73) Lymphocytes (%) (Auto) 4 % (24-48) 11 % (24-48) Monocytes (%) (Auto) 2 % (0-9) 4 % (0-9) Eosinophils (%) (Auto) 0 % (0-3) 0 % (0-3) Basophils (%) (Auto) 0 % (0-3) 1 % (0-3) Neutrophils # (Auto) 9.3 x10^3uL (1.8-7.7) 6.1 x10^3uL (1.8-7.7) Lymphocytes # (Auto) 0.4 x10^3/uL (1.0-4.8) 0.8 x10^3/uL (1.0-4.8) Monocytes # (Auto) 0.2 x10^3/uL (0.0-1.1) 0.3 x10^3/uL (0.0-1.1) Eosinophils # (Auto) 0.0 x10^3/uL (0.0-0.7) 0.0 x10^3/uL (0.0-0.7) Basophils # (Auto) 0.0 x10^3/uL (0.0-0.2) 0.0 x10^3/uL (0.0-0.2) Segmented Neutrophils % 92 % (35-66) Band Neutrophils % 1 % (0-9) Lymphocytes % 5 % (24-48) Monocytes % 1 % (0-10) Basophils % 1 % (0-3) Platelet Estimate Adequate (ADEQUATE) Anisocytosis Slight Sodium Level 137 mmol/L (136-145) 138 mmol/L (136-145) Potassium Level 4.9 mmol/L (3.5-5.1) 3.8 mmol/L (3.5-5.1) Chloride Level 100 mmol/L (98-107) 100 mmol/L (98-107) Carbon Dioxide Level 15 mmol/L (21-32) 23 mmol/L (21-32) Anion Gap 22 (6-14) 15 (6-14) Blood Urea Nitrogen 148 mg/dL (7-20) 68 mg/dL (7-20) Creatinine 19.3 mg/dL (0.6-1.0) 13.0 mg/dL (0.6-1.0) Estimated GFR (Cockcroft-Gault) 2.3 3.7 BUN/Creatinine Ratio 8 (6-20) Glucose Level 90 mg/dL (70-99) 99 mg/dL (70-99) Calcium Level 8.7 mg/dL (8.5-10.1) 9.2 mg/dL (8.5-10.1) Phosphorus Level 10.3 mg/dL (2.6-4.7) Magnesium Level 2.9 mg/dL (1.8-2.4) Total Bilirubin 0.4 mg/dL (0.2-1.0) Aspartate Amino Transf (AST/SGOT) 13 U/L (15-37) Alanine Aminotransferase (ALT/SGPT) 16 U/L (14-59) Alkaline Phosphatase 78 U/L (46-116) Total Protein 7.8 g/dL (6.4-8.2) Albumin 4.0 g/dL (3.4-5.0) Albumin/Globulin Ratio 1.1 (1.0-1.7) Thyroid Stimulating Hormone (TSH) 4.023 uIU/mL (0.358-3.74) Serum Test, Qualitative Negative (NEG) Urine Opiates Screen Neg (NEG) Urine Methadone Screen Neg (NEG) Urine Barbiturates Neg (NEG) Urine Phencyclidine Screen Neg (NEG) Urine Amphetamine/Methamphetamine Neg (NEG) Urine Benzodiazepines Screen Pos (NEG) Urine Cocaine Screen Neg (NEG) Urine Cannabinoids Screen Neg (NEG) Urine Ethyl Alcohol Neg (NEG) O2 Saturation 99 % (92-99) Arterial Blood pH 7.19 (7.35-7.45) Arterial Blood pCO2 at Patient Temp 28 mmHg (35-46) Arterial Blood pO2 at Patient Temp 200 mmHg (85-108) Arterial Blood HCO3 11 mmol/L (21-28) Arterial Blood Base Excess -16 mmol/L (-3-3) FiO2 21 Laboratory Tests Test 08/26/18 13:00 08/26/18 14:10 08/26/18 17:14 08/27/18 04:35 White Blood Count 10.0 x10^3/uL (4.0-11.0) 7.3 x10^3/uL (4.0-11.0) Red Blood Count 4.24 x10^6/uL (3.50-5.40) 4.14 x10^6/uL (3.50-5.40) Hemoglobin 13.1 g/dL (12.0-15.5) 12.6 g/dL (12.0-15.5) Hematocrit 38.9 % (36.0-47.0) 37.3 % (36.0-47.0) Mean Corpuscular Volume 92 fL (79-100) 90 fL (79-100) Mean Corpuscular Hemoglobin 31 pg (25-35) 31 pg (25-35) Mean Corpuscular Hemoglobin Concent 34 g/dL (31-37) 34 g/dL (31-37) Red Cell Distribution Width 16.3 % (11.5-14.5) 16.4 % (11.5-14.5) Platelet Count 215 x10^3/uL (140-400) 226 x10^3/uL (140-400) Neutrophils (%) (Auto) 94 % (31-73) 84 % (31-73) Lymphocytes (%) (Auto) 4 % (24-48) 11 % (24-48) Monocytes (%) (Auto) 2 % (0-9) 4 % (0-9) Eosinophils (%) (Auto) 0 % (0-3) 0 % (0-3) Basophils (%) (Auto) 0 % (0-3) 1 % (0-3) Neutrophils # (Auto) 9.3 x10^3uL (1.8-7.7) 6.1 x10^3uL (1.8-7.7) Lymphocytes # (Auto) 0.4 x10^3/uL (1.0-4.8) 0.8 x10^3/uL (1.0-4.8) Monocytes # (Auto) 0.2 x10^3/uL (0.0-1.1) 0.3 x10^3/uL (0.0-1.1) Eosinophils # (Auto) 0.0 x10^3/uL (0.0-0.7) 0.0 x10^3/uL (0.0-0.7) Basophils # (Auto) 0.0 x10^3/uL (0.0-0.2) 0.0 x10^3/uL (0.0-0.2) Segmented Neutrophils % 92 % (35-66) Band Neutrophils % 1 % (0-9) Lymphocytes % 5 % (24-48) Monocytes % 1 % (0-10) Basophils % 1 % (0-3) Platelet Estimate Adequate (ADEQUATE) Anisocytosis Slight Sodium Level 137 mmol/L (136-145) 138 mmol/L (136-145) Potassium Level 4.9 mmol/L (3.5-5.1) 3.8 mmol/L (3.5-5.1) Chloride Level 100 mmol/L (98-107) 100 mmol/L (98-107) Carbon Dioxide Level 15 mmol/L (21-32) 23 mmol/L (21-32) Anion Gap 22 (6-14) 15 (6-14) Blood Urea Nitrogen 148 mg/dL (7-20) 68 mg/dL (7-20) Creatinine 19.3 mg/dL (0.6-1.0) 13.0 mg/dL (0.6-1.0) Estimated GFR (Cockcroft-Gault) 2.3 3.7 BUN/Creatinine Ratio 8 (6-20) Glucose Level 90 mg/dL (70-99) 99 mg/dL (70-99) Calcium Level 8.7 mg/dL (8.5-10.1) 9.2 mg/dL (8.5-10.1) Phosphorus Level 10.3 mg/dL (2.6-4.7) Magnesium Level 2.9 mg/dL (1.8-2.4) Total Bilirubin 0.4 mg/dL (0.2-1.0) Aspartate Amino Transf (AST/SGOT) 13 U/L (15-37) Alanine Aminotransferase (ALT/SGPT) 16 U/L (14-59) Alkaline Phosphatase 78 U/L (46-116) Total Protein 7.8 g/dL (6.4-8.2) Albumin 4.0 g/dL (3.4-5.0) Albumin/Globulin Ratio 1.1 (1.0-1.7) Thyroid Stimulating Hormone (TSH) 4.023 uIU/mL (0.358-3.74) Serum Test, Qualitative Negative (NEG) Urine Opiates Screen Neg (NEG) Urine Methadone Screen Neg (NEG) Urine Barbiturates Neg (NEG) Urine Phencyclidine Screen Neg (NEG) Urine Amphetamine/Methamphetamine Neg (NEG) Urine Benzodiazepines Screen Pos (NEG) Urine Cocaine Screen Neg (NEG) Urine Cannabinoids Screen Neg (NEG) Urine Ethyl Alcohol Neg (NEG) O2 Saturation 99 % (92-99) Arterial Blood pH 7.19 (7.35-7.45) Arterial Blood pCO2 at Patient Temp 28 mmHg (35-46) Arterial Blood pO2 at Patient Temp 200 mmHg (85-108) Arterial Blood HCO3 11 mmol/L (21-28) Arterial Blood Base Excess -16 mmol/L (-3-3) FiO2 21 Medications Current Medications Ondansetron HCl (Zofran) 4 mg 1X ONCE IV Last administered on 08/26/18at 13:45 ; Start 08/26/18 at 13:45; Stop 08/26/18 at 13:46; Status DC Labetalol HCl (Normodyne Iv Push) 10 mg 1X ONCE IVP Last administered on at 13:46; Start 08/26/18 at 13:45; Stop 08/26/18 at 13:46; Status DC Labetalol HCl (Normodyne Iv Push) 20 mg STK-MED ONCE IVP ; Start 08/26/18 at 13: 42; Stop 08/26/18 at 13:43; Status DC Ondansetron HCl (Zofran) 4 mg STK-MED ONCE .ROUTE ; Start 08/26/18 at 13:42; Stop 08/26/18 at 13:43; Status DC Lorazepam (Ativan) 2 mg STK-MED ONCE .ROUTE ; Start 08/26/18 at 14:12; Stop 08/26/18 at 14:13; Status DC Lorazepam (Ativan) 2 mg 1X ONCE IV Last administered on 08/26/18at 14:19; Start 08/26/18 at 14:15; Stop 08/26/18 at 14:16; Status DC Lorazepam (Ativan) 2 mg 1X STAT IV Last administered on 08/26/18at 16:02; Start 08/26/18 at 16:09; Stop 08/26/18 at 16:16; Status DC Lorazepam (Ativan) 2 mg PRN Q4HRS PRN IV ANXIETY / AGITATION; Start 08/26/18 at 17:15 Levetiracetam 750 mg/Dextrose 107.5 ml @ 440 mls/hr 1X ONCE IV Last administered on 08/26/18at 17:42; Start 08/26/18 at 17:30; Stop 08/26/18 at 17:44 ; Status DC Levetiracetam 500 mg/Dextrose 105 ml @ 420 mls/hr Q12HR IV Last administered on 08/27/18at 09:08; Start 08/27/18 at 09:00 Heparin Sodium (Porcine) (Heparin Sodium) 5,000 unit BID SQ Last administered on 08/27/18at 09:09; Start 08/26/18 at 21:00 Labetalol HCl (Normodyne Iv Push) 20 mg 1X ONCE IVP Last administered on at 17:40; Start 08/26/18 at 17:15; Stop 08/26/18 at 17:16; Status DC Lorazepam (Ativan) 2 mg PRN Q2HR PRN IV SEIZURE Last administered on 08/26/18at 17:03; Start 08/26/18 at 17:15 Sodium Bicarbonate (Sodium Bicarb Adult 8.4% Syr) 50 meq STK-MED ONCE .ROUTE ; Start 08/26/18 at 17:34; Stop 08/26/18 at 17:35; Status DC Sodium Bicarbonate (Sodium Bicarb Adult 8.4% Syr) 50 meq 1X ONCE IV Last administered on 08/26/18at 17:41; Start 08/26/18 at 17:45; Stop 08/26/18 at 17:46 ; Status DC Sodium Bicarbonate 50 meq/Sodium Chloride 1,050 ml @ 80 mls/hr Q13H8M IV Last administered on 08/26/18at 17:58; Start 08/26/18 at 18:00; Stop 08/27/18 at 07:07 ; Status DC Sodium Chloride 1,000 ml @ 1,000 mls/hr Q1H PRN IV hypotension; Start 08/26/18 at 17:55; Stop 08/26/18 at 23:54; Status DC Sodium Chloride 1,000 ml @ 400 mls/hr Q2H30M PRN IV PATENCY; Start 08/26/18 at 17:55; Stop 08/27/18 at 05:54; Status DC Info (PHARMACY MONITORING -- do not chart) 1 each PRN DAILY PRN MC SEE COMMENTS ; Start 08/26/18 at 18:00; Status UNV Info (PHARMACY MONITORING -- do not chart) 1 each PRN DAILY PRN MC SEE COMMENTS ; Start 08/26/18 at 18:00 Nicardipine HCl 50 mg/Sodium Chloride 270 ml @ 27 mls/hr CONT PRN IV SEE I/O RECORD Last administered on 08/27/18at 08:46; Start 08/26/18 at 18:15 Influenza Virus Vaccine (Afluria Trivalent [id number] Syringe) 0.5 ml ONCE ONCE VAX IM ; Start 08/26/18 at 18:45; Stop 08/26/18 at 18:46; Status DC Acetaminophen/ Hydrocodone Bitart (Lortab 5/325) 1 tab PRN Q4HRS PRN PO PAIN Last administered on 08/27/18at 01:54; Start 08/27/18 at 01:45 Metoprolol Tartrate (Lopressor Vial) 5 mg PRN Q4HRS PRN IVP HYPERTENSION, SEE COMMENTS Last administered on 08/27/18at 10:30; Start 08/27/18 at 01:45 Ondansetron HCl (Zofran) 4 mg PRN Q6HRS PRN IV NAUSEA/VOMITING; Start 08/27/18 at 12:00 Active Scripts Active Reported Labetalol Hcl 100 Mg Tablet 100 Mg PO DAILY08 Vitals/I & O Vital Sign - Last 24 Hours 08/26/18 08/26/18 08/26/18 08/26/18 12:51 13:05 13:31 13:46 Pulse 90 98 88 85 Resp 18 18 22 B/P (MAP) 208/125 Pulse Ox 94 97 96 08/26/18 08/26/18 08/26/18 08/26/18 13:56 14:19 14:55 17:00 Pulse 88 90 90 Resp 19 21 22 Pulse Ox 97 95 97 O2 Delivery Nasal Cannula O2 Flow Rate 2.0 08/26/18 08/26/18 08/26/18 08/26/18 17:00 17:05 17:15 17:40 Temp 98.0 98.0 Pulse 108 124 100 97 Resp 12 B/P (MAP) 74/36 (49) 195/115 (141) 177/102 (127) 177/102 Pulse Ox 95 100 O2 Delivery Room Air Nasal Cannula Nasal Cannula O2 Flow Rate 5.0 5.0 08/26/18 08/26/18 08/26/18 08/26/18 17:45 18:00 18:30 19:00 Pulse 106 94 117 128 Resp 12 12 12 16 B/P (MAP) 200/116 (144) 182/112 (135) 166/95 (118) 163/89 (113) Pulse Ox 99 100 100 100 O2 Delivery Nasal Cannula Nasal Cannula Nasal Cannula Nasal Cannula O2 Flow Rate 2.0 2.0 2.0 2.0 08/26/18 08/26/18 08/26/18 08/26/18 20:00 20:00 21:00 22:00 Temp 98.2 98.2 Pulse 116 110 116 Resp 20 18 19 B/P (MAP) 148/62 (90) 147/70 (95) 153/66 (95) Pulse Ox 100 99 99 O2 Delivery Nasal Cannula Nasal Cannula Nasal Cannula Nasal Cannula O2 Flow Rate 2.0 2.0 2.0 2.0 08/26/18 08/26/18 08/27/18 08/27/18 23:00 23:50 00:00 01:00 Temp 98.3 98.3 Pulse 120 119 118 Resp 20 14 23 B/P (MAP) 159/80 (106) 128/54 (78) 146/70 (95) Pulse Ox 100 99 100 O2 Delivery Nasal Cannula Room Air Room Air Room Air O2 Flow Rate 2.0 08/27/18 08/27/18 08/27/18 08/27/18 01:54 01:54 02:00 02:54 Pulse 132 132 Resp 24 23 18 B/P (MAP) 144/77 160/76 (104) Pulse Ox 100 100 96 O2 Delivery Room Air Room Air Room Air 08/27/18 08/27/18 08/27/18 08/27/18 03:00 03:40 04:00 05:00 Temp 98.2 98.2 Pulse 95 111 101 Resp 18 16 15 B/P (MAP) 133/72 (92) 132/70 (90) 139/68 (91) Pulse Ox 100 100 99 O2 Delivery Room Air Room Air Room Air Room Air 08/27/18 08/27/18 08/27/18 08/27/18 05:46 06:00 07:00 08:00 Pulse 106 104 Resp 18 16 B/P (MAP) 144/72 (96) 145/72 (96) 144/79 (100) Pulse Ox 99 98 O2 Delivery Room Air Room Air Room Air 08/27/18 08/27/18 08/27/18 08/27/18 08:00 09:00 10:00 10:15 Temp 98.2 98.2 Pulse 106 128 108 101 Resp 16 18 18 17 B/P (MAP) 138/66 (90) 154/67 (96) 136/64 (88) 142/74 (96) Pulse Ox 98 100 100 O2 Delivery Room Air Room Air Room Air Room Air 08/27/18 08/27/18 08/27/18 10:30 11:00 12:00 Temp 98.4 98.4 Pulse 100 90 86 Resp 17 18 B/P (MAP) 137/70 132/71 (91) 147/79 (101) Pulse Ox 100 100 O2 Delivery Room Air Room Air Intake and Output 08/26/18 08/26/18 08/27/18 15:00 23:00 07:00 Intake Total 1340 ml Output Total 440 ml 120 ml Balance -440 ml 1220 ml DYLAN VALENCIA III DO Aug 27, 2018 12:54
--- NOTE | 2018-08-27 13:24 | RAD ---
MRA of the brain without contrast 08/27/2018 Clinical History: Recent seizures and dizziness. Technique: Using 3-D time of flight techniques, a MRA of the major arterial structures surrounding the [place] of [place] was performed. Findings: MRA images of the anterior and posterior circulations are within normal limits. No area of stenosis or occlusion is seen. No intracranial aneurysm is seen. Impression: Negative study. Electronically signed by: Kyler Duran MD (08/27/2018 1:21 PM) [id number]
--- NOTE | 2018-08-27 13:29 | EEG ---
DATE OF SERVICE: 08/27/2018 EEG NUMBER: [id number] OBJECTIVE: This is a 18-year-old female patient with history of multiple seizures, 08/26/2018. EEG was requested to evaluate seizure activity. METHODS: Twenty electrodes were applied according to the international 10-20 electrode placement system. EKG monitoring, hyperventilation, intermittent photic stimulation, monopolar and bipolar montages are routinely utilized. The record was obtained on a digital system with video monitoring. FINDINGS: 1. Background: The patient was recorded in the drowsy state mainly, no fully awake and sleep states were recorded. The overall background amplitude is variable. No well-organized posterior dominant rhythm is observed. The overall background rhythm is with slowing in the theta and delta frequencies. Faster activity in the Beta frequency also noted. 2. Abnormalities: No specific epileptiform discharge or electrographic seizure is seen. Slowing in the theta and delta frequencies noted throughout the entire recording. 3. Activation: Hyperventilation was not performed because the patient was unable to perform the technique. Intermittent photic stimulation was performed with photic driving. No specific epileptiform discharge or electrographic seizure induced by intermittent photic stimulation. IMPRESSION: This EEG is an abnormal study for mainly drowsy state. No fully awake and sleep states were recorded. Occasionally, the posterior dominant rhythm of 7 Hz is observed, but the background rhythm is mainly in the theta and delta frequencies. No focal, lateralizing, specific epileptiform discharge or electrographic seizure is seen. This pattern of EEG may suggest encephalopathy. ADALBERTO ROSS MD DR: CHIARA/isidro JOB#: [id number] / [id number] JEANA
--- NOTE | 2018-08-27 13:51 | RAD ---
MRI of the brain without contrast 08/27/2018 Clinical History: Recent seizures, dizziness, unsteady gait, weakness. Hypertension. Areas of decreased attenuation seen within the occipital and parietal lobes on recent CT scan of the head. Technique: Unenhanced T1-weighted sagittal and axial, T2-weighted axial and coronal and FLAIR, gradient echo and diffusion-weighted axial images of the brain were obtained. Intravenous gadolinium was not administered due to the patient's renal failure. Findings: Comparison is made to patient's CT scan of the head dated 08/26/2018. The ventricles are within normal limits in size and configuration. Multiple symmetric areas of vasogenic edema are seen involving the posterior temporal lobes, occipital lobes, parietal lobes and both superior frontal lobes. Some of these areas corresponds to the abnormalities seen on the patient's CT scan. These findings are felt to most likely reflect posterior reversible encephalopathy syndrome (PRES). No hemorrhage is seen. There is no evidence of restricted diffusion to suggest acute ischemia/infarction. No extra-axial fluid collection is seen. Mild mucosal thickening in seen scattered throughout the paranasal sinuses. There are minimal bilateral mastoid effusions. A 2.3 cm mucous retention cyst is seen involving the left maxillary sinus. Normal flow voids are seen within the major vascular structures surrounding the brain parenchyma. IMPRESSION: Multiple symmetric areas of vasogenic edema are seen involving both cerebral hemispheres which are felt to most likely reflect posterior reversible encephalopathy syndrome (PRES) as outlined above. Electronically signed by: Kyler Duran MD (08/27/2018 1:47 PM) [id number]
[2018-08-27] MEDS ORDERED: dilTIAZem HCL 30 MG TABLET PO PRN (15:00)
--- NOTE | 2018-08-27 19:43 | PDOC ---
PROGRESS NOTES Assessment Assessment Seizure, provoked. PRES syndrome. Hypertensive emergency, BP 200/116 mmHg. Metabolic encephalopathy. Hypertensive encephalopathy. Renal failure, not compliant to dialysis, missed dialysis since 08/15/18. HTN. Obesity. RECOMMENDATIONS/PLAN: Keppra 500 mg po bid for 3 months, then taper off. Dialysis. Treat medical diseases. BP control. Discussed with her mother at bedside on 08/27/18. EEG on 08/27/18: Encephalopathy. No seizure activity. Brain MRI on 08/27/18: in consistent with PRES. HISTORY OF THE PRESENT ILLNESS: 18-y-old female patient with Hx of renal failure stated to have dialysis in , but she missed dialysis due to not compliant to the treatment. She had a seizure or seizure like episode to be brought to the ER of [facility] and was admitted to [facility]. She tehn had more seizures want to status to be transferred to ICU. Per her sister, she had a seizure about 4 months ago and was seen in [facility] thought was related to UTI. PAST MEDICAL HISTORY: HTN. Renal failure. PAST SURGICAL HISTORY: Dialysis fistula placement. ALLERGY: Unknown MEDICATIONS: Refer to [facility] FAMILY HISTORY: HTN. SOCIAL HISTORY: On disability. Lives with her mother and her 4 year boy. Denies smoking, drinking, and illicit drug use. REVIEW OF SYSTEMS: Constitutional: Obesity. Head: No traumatic brain or head injury. Skin: No edema, or rash. Ear: No infection, tinnitus. Eyes: No vision loss or color blindness. Nose: No bleeding or purulent discharges. Hearing: No hearing decrease. Neck: No injury. Breast: No history of cancer, masses,or discharges. Cardiac: HTN. Pulmonary: No pneumonia, COPD. GI: No GI ulcer, GI bleeding. Urinary/genital: Renal failure, UTI. Endocrinologic: Obesity. Skeletomuscular: No muscular atrophy, deformity. Neurological: see HP. Psychiatric: Denies drug use/abuse. Otherwise, not [id number] review of systems. PHYSICAL EXAMINATION: General appearance is in subacute distress. HEENT: Normocephalic and nontraumatic. Eyes, nose, ears, and throat are unremarkable. Neck is supple. No lymphadenopathy. No bruits are heard over the carotid artery. No crepitus. Cardiovascular: S1, S2, regular rate and rhythm. Pulmonary: Clear to auscultation bilaterally. Abdomen: Bowel sounds are positive. Extremities: No rash, lesions, or edema. No restriction of range of motion NEUROLOGICAL EXAMINATION: Awake. Oriented to time, place and person. PERRL. EOMI. CN: no focal findings. Muscle tone: within normal. Muscle strength: 5 DTR: 2 Plantar reflex: Flexor response bilaterally Gait: Normal. Sensory exam: no abnormal findings. No cerebellar signs elicited. F-T-N test fine Objective Objective Vital Signs Date Time Temp Pulse Resp B/P (MAP) Pulse Ox O2 Delivery O2 Flow Rate FiO2 08/27/18 15:00 97.8 131/85 (100) 98 Room Air 97.8 08/27/18 12:00 86 18 08/27/18 01:00 Intake and Output 08/27/18 07:00 Intake Total 1340 ml Output Total 560 ml Balance 780 ml IV Total 1340 ml Output Urine Total 560 ml Vitals Signs Vitals VS - Last 72 Hours, by Label Date Time Temp Pulse Resp B/P (MAP) Pulse Ox O2 Delivery O2 Flow Rate FiO2 08/27/18 15:00 97.8 131/85 (100) 98 Room Air 97.8 08/27/18 12:00 98.4 86 18 147/79 (101) 100 Room Air 98.4 08/27/18 11:00 90 17 132/71 (91) 100 Room Air 08/27/18 10:30 100 137/70 08/27/18 10:15 101 17 142/74 (96) 100 Room Air 08/27/18 10:00 108 18 136/64 (88) Room Air 08/27/18 09:00 128 18 154/67 (96) 100 Room Air 08/27/18 08:00 98.2 106 16 138/66 (90) 98 Room Air 98.2 08/27/18 08:00 Room Air 08/27/18 07:00 104 16 144/79 (100) 98 Room Air 08/27/18 06:00 106 18 145/72 (96) 99 Room Air 08/27/18 05:46 144/72 (96) 08/27/18 05:00 101 15 139/68 (91) 99 Room Air 08/27/18 04:00 98.2 111 16 132/70 (90) 100 Room Air 98.2 08/27/18 03:40 Room Air 08/27/18 03:00 95 18 133/72 (92) 100 Room Air 08/27/18 02:54 18 96 Room Air 08/27/18 02:00 132 23 160/76 (104) 100 Room Air 08/27/18 01:54 132 144/77 08/27/18 01:54 24 100 Room Air 08/27/18 01:00 118 23 146/70 (95) 100 Room Air 08/27/18 00:00 98.3 119 14 128/54 (78) 99 Room Air 98.3 08/26/18 23:50 Room Air 08/26/18 23:00 120 20 159/80 (106) 100 Nasal Cannula 2.0 08/26/18 22:00 116 19 153/66 (95) 99 Nasal Cannula 2.0 08/26/18 21:00 110 18 147/70 (95) 99 Nasal Cannula 2.0 08/26/18 20:00 Nasal Cannula 2.0 08/26/18 20:00 98.2 116 20 148/62 (90) 100 Nasal Cannula 2.0 98.2 08/26/18 19:00 128 16 163/89 (113) 100 Nasal Cannula 2.0 08/26/18 18:30 117 12 166/95 (118) 100 Nasal Cannula 2.0 08/26/18 18:00 94 12 182/112 (135) 100 Nasal Cannula 2.0 08/26/18 17:45 106 12 200/116 (144) 99 Nasal Cannula 2.0 08/26/18 17:40 97 177/102 08/26/18 17:15 100 177/102 (127) 100 Nasal Cannula 5.0 08/26/18 17:05 98.0 124 195/115 (141) 95 Nasal Cannula 5.0 98.0 08/26/18 17:00 108 12 74/36 (49) Room Air 08/26/18 17:00 Nasal Cannula 2.0 08/26/18 14:55 90 22 97 08/26/18 14:19 90 21 95 08/26/18 13:56 88 19 97 08/26/18 13:46 85 208/125 08/26/18 13:31 88 22 96 08/26/18 13:05 98 18 97 08/26/18 12:51 90 18 94 08/26/18 12:44 98.9 97 20 192/129 (150) 95 Room Air 98.9 Laboratory Laboratory Laboratory Tests Test 08/26/18 23:47 08/27/18 04:35 Nasal Screen MRSA (PCR) Negative (Negative) White Blood Count 7.3 x10^3/uL (4.0-11.0) Red Blood Count 4.14 x10^6/uL (3.50-5.40) Hemoglobin 12.6 g/dL (12.0-15.5) Hematocrit 37.3 % (36.0-47.0) Mean Corpuscular Volume 90 fL (79-100) Mean Corpuscular Hemoglobin 31 pg (25-35) Mean Corpuscular Hemoglobin Concent 34 g/dL (31-37) Red Cell Distribution Width 16.4 % (11.5-14.5) Platelet Count 226 x10^3/uL (140-400) Neutrophils (%) (Auto) 84 % (31-73) Lymphocytes (%) (Auto) 11 % (24-48) Monocytes (%) (Auto) 4 % (0-9) Eosinophils (%) (Auto) 0 % (0-3) Basophils (%) (Auto) 1 % (0-3) Neutrophils # (Auto) 6.1 x10^3uL (1.8-7.7) Lymphocytes # (Auto) 0.8 x10^3/uL (1.0-4.8) Monocytes # (Auto) 0.3 x10^3/uL (0.0-1.1) Eosinophils # (Auto) 0.0 x10^3/uL (0.0-0.7) Basophils # (Auto) 0.0 x10^3/uL (0.0-0.2) Sodium Level 138 mmol/L (136-145) Potassium Level 3.8 mmol/L (3.5-5.1) Chloride Level 100 mmol/L (98-107) Carbon Dioxide Level 23 mmol/L (21-32) Anion Gap 15 (6-14) Blood Urea Nitrogen 68 mg/dL (7-20) Creatinine 13.0 mg/dL (0.6-1.0) Estimated GFR (Cockcroft-Gault) 3.7 Glucose Level 99 mg/dL (70-99) Calcium Level 9.2 mg/dL (8.5-10.1) Medication Medications Current Medications Acetaminophen/ Hydrocodone Bitart (Lortab 5/325) 1 tab PRN Q4HRS PRN PO PAIN Last administered on 08/27/18at 01:54; Start 08/27/18 at 01:45 Diltiazem HCl (Cardizem) 30 mg PRN Q8HRS PRN PO HYPERTENSION, SEE COMMENTS; Start 08/27/18 at 15:00 Heparin Sodium (Porcine) (Heparin Sodium) 5,000 unit BID SQ Last administered on 08/27/18at 09:09; Start 08/26/18 at 21:00 Levetiracetam 500 mg/Dextrose 105 ml @ 420 mls/hr Q12HR IV Last administered on 08/27/18at 09:08; Start 08/27/18 at 09:00 Metoprolol Tartrate (Lopressor Vial) 5 mg PRN Q4HRS PRN IVP HYPERTENSION, SEE COMMENTS Last administered on 08/27/18at 10:30; Start 08/27/18 at 01:45 Ondansetron HCl (Zofran) 4 mg PRN Q6HRS PRN IV NAUSEA/VOMITING; Start 08/27/18 at 12:00 Comment Review of Relevant I have reviewed the following items tavia (where applicable) has been applied. ADALBERTO ROSS MD Aug 27, 2018 19:43
[2018-08-28] MEDS: METOPROLOL TARTRATE 5 MG/5 ML VIAL. IVP PRN ×2 (03:04→07:57)
[2018-08-28 03:10] VITALS: BP 152/111
[2018-08-28 06:12] LABS: ALBUMIN 3.4 g/dL (3.4-5.0); CALCIUM 8.7 mg/dL (8.5-10.1); CREATININE 14.7 mg/dL (0.6-1.0); GFR 3.2; PHOSPHORUS 8.6 mg/dL (2.6-4.7); POTASSIUM 3.7 mmol/L (3.5-5.1)
[2018-08-28 07:35] VITALS: BP 170/113
--- NOTE | 2018-08-28 08:33 | PDOC ---
PULMONARY PROGRESS NOTES Subjective PT NO INCREASE SOA Vitals Vital Signs Date Time Temp Pulse Resp B/P (MAP) Pulse Ox O2 Delivery O2 Flow Rate FiO2 08/28/18 08:07 Room Air 2.0 08/28/18 07:57 90 170/113 08/28/18 07:35 98.0 18 95 98.0 ROS: No Nausea, No Chest Pain, No Abdominal Pain, No Increase Cough Lungs: Clear Cardiovascular: S1, S2 Abdomen: Soft Extremities: No Edema Labs Laboratory Tests Test 08/26/18 13:00 08/26/18 14:10 08/26/18 17:14 08/26/18 23:47 White Blood Count 10.0 x10^3/uL (4.0-11.0) Red Blood Count 4.24 x10^6/uL (3.50-5.40) Hemoglobin 13.1 g/dL (12.0-15.5) Hematocrit 38.9 % (36.0-47.0) Mean Corpuscular Volume 92 fL (79-100) Mean Corpuscular Hemoglobin 31 pg (25-35) Mean Corpuscular Hemoglobin Concent 34 g/dL (31-37) Red Cell Distribution Width 16.3 % (11.5-14.5) Platelet Count 215 x10^3/uL (140-400) Neutrophils (%) (Auto) 94 % (31-73) Lymphocytes (%) (Auto) 4 % (24-48) Monocytes (%) (Auto) 2 % (0-9) Eosinophils (%) (Auto) 0 % (0-3) Basophils (%) (Auto) 0 % (0-3) Neutrophils # (Auto) 9.3 x10^3uL (1.8-7.7) Lymphocytes # (Auto) 0.4 x10^3/uL (1.0-4.8) Monocytes # (Auto) 0.2 x10^3/uL (0.0-1.1) Eosinophils # (Auto) 0.0 x10^3/uL (0.0-0.7) Basophils # (Auto) 0.0 x10^3/uL (0.0-0.2) Segmented Neutrophils % 92 % (35-66) Band Neutrophils % 1 % (0-9) Lymphocytes % 5 % (24-48) Monocytes % 1 % (0-10) Basophils % 1 % (0-3) Platelet Estimate Adequate (ADEQUATE) Anisocytosis Slight Sodium Level 137 mmol/L (136-145) Potassium Level 4.9 mmol/L (3.5-5.1) Chloride Level 100 mmol/L (98-107) Carbon Dioxide Level 15 mmol/L (21-32) Anion Gap 22 (6-14) Blood Urea Nitrogen 148 mg/dL (7-20) Creatinine 19.3 mg/dL (0.6-1.0) Estimated GFR (Cockcroft-Gault) 2.3 BUN/Creatinine Ratio 8 (6-20) Glucose Level 90 mg/dL (70-99) Calcium Level 8.7 mg/dL (8.5-10.1) Phosphorus Level 10.3 mg/dL (2.6-4.7) Magnesium Level 2.9 mg/dL (1.8-2.4) Total Bilirubin 0.4 mg/dL (0.2-1.0) Aspartate Amino Transf (AST/SGOT) 13 U/L (15-37) Alanine Aminotransferase (ALT/SGPT) 16 U/L (14-59) Alkaline Phosphatase 78 U/L (46-116) Total Protein 7.8 g/dL (6.4-8.2) Albumin 4.0 g/dL (3.4-5.0) Albumin/Globulin Ratio 1.1 (1.0-1.7) Thyroid Stimulating Hormone (TSH) 4.023 uIU/mL (0.358-3.74) Serum Test, Qualitative Negative (NEG) Urine Opiates Screen Neg (NEG) Urine Methadone Screen Neg (NEG) Urine Barbiturates Neg (NEG) Urine Phencyclidine Screen Neg (NEG) Urine Amphetamine/Methamphetamine Neg (NEG) Urine Benzodiazepines Screen Pos (NEG) Urine Cocaine Screen Neg (NEG) Urine Cannabinoids Screen Neg (NEG) Urine Ethyl Alcohol Neg (NEG) O2 Saturation 99 % (92-99) Arterial Blood pH 7.19 (7.35-7.45) Arterial Blood pCO2 at Patient Temp 28 mmHg (35-46) Arterial Blood pO2 at Patient Temp 200 mmHg (85-108) Arterial Blood HCO3 11 mmol/L (21-28) Arterial Blood Base Excess -16 mmol/L (-3-3) FiO2 21 Nasal Screen MRSA (PCR) Negative (Negative) Test 08/27/18 04:35 08/28/18 04:43 White Blood Count 7.3 x10^3/uL (4.0-11.0) Red Blood Count 4.14 x10^6/uL (3.50-5.40) Hemoglobin 12.6 g/dL (12.0-15.5) Hematocrit 37.3 % (36.0-47.0) Mean Corpuscular Volume 90 fL (79-100) Mean Corpuscular Hemoglobin 31 pg (25-35) Mean Corpuscular Hemoglobin Concent 34 g/dL (31-37) Red Cell Distribution Width 16.4 % (11.5-14.5) Platelet Count 226 x10^3/uL (140-400) Neutrophils (%) (Auto) 84 % (31-73) Lymphocytes (%) (Auto) 11 % (24-48) Monocytes (%) (Auto) 4 % (0-9) Eosinophils (%) (Auto) 0 % (0-3) Basophils (%) (Auto) 1 % (0-3) Neutrophils # (Auto) 6.1 x10^3uL (1.8-7.7) Lymphocytes # (Auto) 0.8 x10^3/uL (1.0-4.8) Monocytes # (Auto) 0.3 x10^3/uL (0.0-1.1) Eosinophils # (Auto) 0.0 x10^3/uL (0.0-0.7) Basophils # (Auto) 0.0 x10^3/uL (0.0-0.2) Sodium Level 138 mmol/L (136-145) 139 mmol/L (136-145) Potassium Level 3.8 mmol/L (3.5-5.1) 3.7 mmol/L (3.5-5.1) Chloride Level 100 mmol/L (98-107) 99 mmol/L (98-107) Carbon Dioxide Level 23 mmol/L (21-32) 24 mmol/L (21-32) Anion Gap 15 (6-14) 16 (6-14) Blood Urea Nitrogen 68 mg/dL (7-20) 80 mg/dL (7-20) Creatinine 13.0 mg/dL (0.6-1.0) 14.7 mg/dL (0.6-1.0) Estimated GFR (Cockcroft-Gault) 3.7 3.2 Glucose Level 99 mg/dL (70-99) 85 mg/dL (70-99) Calcium Level 9.2 mg/dL (8.5-10.1) 8.7 mg/dL (8.5-10.1) Phosphorus Level 8.6 mg/dL (2.6-4.7) Albumin 3.4 g/dL (3.4-5.0) Laboratory Tests Test 08/28/18 04:43 Sodium Level 139 mmol/L (136-145) Potassium Level 3.7 mmol/L (3.5-5.1) Chloride Level 99 mmol/L (98-107) Carbon Dioxide Level 24 mmol/L (21-32) Anion Gap 16 (6-14) Blood Urea Nitrogen 80 mg/dL (7-20) Creatinine 14.7 mg/dL (0.6-1.0) Estimated GFR (Cockcroft-Gault) 3.2 Glucose Level 85 mg/dL (70-99) Calcium Level 8.7 mg/dL (8.5-10.1) Phosphorus Level 8.6 mg/dL (2.6-4.7) Albumin 3.4 g/dL (3.4-5.0) Medications Active Scripts Medications Dose Route/Sig Max Daily Dose Days Date Category Labetalol Hcl 100 Mg Tablet 100 Mg PO DAILY08 03/10/14 Reported Impression . IMPRESSION: 1. Respiratory distress and metabolic acidosis secondary to seizure activity. 2. Seizures per Neurology. 3. Posterior reversible encephalopathy syndrome. 4. Hypertensive emergency. 5. Metabolic/hypertensive encephalopathy. 6. Renal failure. 7. Obesity. 8. Tobacco dependence. Plan . WILL S/O CALL IF NEEDED RESP STATUS IS COMPENSATED KEYLA CLARK MD Aug 28, 2018 08:33
[2018-08-28] MEDS: levETIRAcetam 500 MG in IV DEXTROSE 5% 100ML 100 ML IV SCH ×2 (09:17→20:34)
[2018-08-28] MEDS: HEPARIN for SUB-Q USE 5,000 UNIT/ML VIAL. SQ SCH ×2 (09:24→20:43)
--- NOTE | 2018-08-28 09:34 | PDOC ---
SUBJECTIVE ROS No new concerns OBJECTIVE Vital Signs Vital Signs Date Time Temp Pulse Resp B/P (MAP) Pulse Ox O2 Delivery O2 Flow Rate FiO2 08/28/18 08:07 Room Air 2.0 08/28/18 07:57 90 170/113 08/28/18 07:35 98.0 18 95 98.0 I & 0 Intake and Output 08/28/18 07:00 Intake Total 555 ml Output Total 140 ml Balance 415 ml Intake Oral 450 ml IV Total 105 ml Output Urine Total 140 ml # Voids 6 PHYSICAL EXAM Physical Exam General appearance - NAD HEENT: OM Dry Neck - Supple Cardiovascular: S1, S2, regular rate and rhythm. Pulmonary: Clear to auscultation bilaterally, Non labored Abdomen: Soft, NT Extremities:No edema. - Titus + Neuro- AxO x 3, (rest as per Neurologist exam) DIAGNOSIS/ASSESSMENT Assessment & Plan ESRD- MWF at [facility] Missed multiple treatments Hospitalized with Azotemia, Seizures- emergent Dialysis 08/26 seen on HD, tolerating well continue as Ordered Again tomorrow so she is back on her schedule Seizures- Neurology following MRI (without Contrast) as per Neuro - negative HTN-On Antihypretensives currently Not on any meds at home Hyperphosphatemia- sec to ESRD/Missing HD Discussed with Pt and GAGE, COMMENT/RELEVANT DATA Meds Current Medications Medications (Trade) Dose Ordered Sig/Prosper Start Time Stop Time Status Last Admin Dose Admin Acetaminophen/ Hydrocodone Bitart (Lortab 5/325) 1 tab PRN Q4HRS PRN 08/27/18 01:45 08/27/18 01:54 1 TAB Diltiazem HCl (Cardizem) 30 mg PRN Q8HRS PRN 08/27/18 15:00 Heparin Sodium (Porcine) (Heparin Sodium) 5,000 unit BID 08/26/18 21:00 08/28/18 09:24 5,000 UNIT Influenza Virus Vaccine (Afluria Trivalent [id number] Syringe) 0.5 ml ONCE ONCE 08/26/18 18:45 08/26/18 18:46 DC Info (PHARMACY MONITORING -- do not chart) 1 each PRN DAILY PRN 08/26/18 18:00 Labetalol HCl (Normodyne Iv Push) 20 mg 1X ONCE 08/26/18 17:15 08/26/18 17:16 DC 08/26/18 17:40 20 MG Levetiracetam 500 mg/Dextrose 105 ml @ 420 mls/hr Q12HR 08/27/18 09:00 08/28/18 09:17 420 MLS/HR Levetiracetam 750 mg/Dextrose 107.5 ml @ 440 mls/hr 1X ONCE 08/26/18 17:30 08/26/18 17:44 DC 08/26/18 17:42 440 MLS/HR Lorazepam (Ativan) 2 mg PRN Q2HR PRN 08/26/18 17:15 08/26/18 17:03 2 MG Metoprolol Tartrate (Lopressor Vial) 5 mg PRN Q4HRS PRN 08/27/18 01:45 08/28/18 07:57 5 MG Nicardipine HCl 50 mg/Sodium Chloride 270 ml @ 27 mls/hr CONT PRN 08/26/18 18:15 08/27/18 08:46 25 MLS/HR Ondansetron HCl (Zofran) 4 mg PRN Q6HRS PRN 08/27/18 12:00 Sodium Bicarbonate 50 meq/Sodium Chloride 1,050 ml @ 80 mls/hr Q13H8M 08/26/18 18:00 08/27/18 07:07 DC 08/26/18 17:58 80 MLS/HR Sodium Bicarbonate (Sodium Bicarb Adult 8.4% Syr) 50 meq 1X ONCE 08/26/18 17:45 08/26/18 17:46 DC 08/26/18 17:41 50 MEQ Sodium Chloride 1,000 ml @ 400 mls/hr Q2H30M PRN 08/26/18 17:55 08/27/18 05:54 DC Lab Laboratory Tests Test 08/28/18 04:43 Sodium Level 139 mmol/L (136-145) Potassium Level 3.7 mmol/L (3.5-5.1) Chloride Level 99 mmol/L (98-107) Carbon Dioxide Level 24 mmol/L (21-32) Anion Gap 16 (6-14) Blood Urea Nitrogen 80 mg/dL (7-20) Creatinine 14.7 mg/dL (0.6-1.0) Estimated GFR (Cockcroft-Gault) 3.2 Glucose Level 85 mg/dL (70-99) Calcium Level 8.7 mg/dL (8.5-10.1) Phosphorus Level 8.6 mg/dL (2.6-4.7) Albumin 3.4 g/dL (3.4-5.0) Results All relevant outside records, renal labs, imaging studies, telemetry/EKG's were reviewed. CONNER BUSTOS MD Aug 28, 2018 09:34
[2018-08-28 11:01] VITALS: BP 146/106
[2018-08-28] MEDS ORDERED: VIT1TABL71 PO (11:17)
[2018-08-28] MEDS ORDERED: FERR210T PO (11:17)
[2018-08-28] MEDS ORDERED: ACETAMINOPHEN 325 MG TABLET. PO PRN (11:30)
[2018-08-28] MEDS ORDERED: MORPHINE SULFATE 2 MG/ML VIAL. IV PRN (11:30)
[2018-08-28] MEDS ORDERED: LABETALOL 20 MG/4 ML DISP.SYRIN. IVP PRN (11:30)
[2018-08-28] MEDS ORDERED: ONDANSETRON PF 4 MG/2 ML VIAL. IV PRN (11:30)
[2018-08-28] MEDS ORDERED: traMADol 50 MG TABLET PO PRN (11:30)
[2018-08-28] MEDS ORDERED: DOCUSATE SODIUM 100 MG CAPSULE. PO PRN (11:30)
[2018-08-28] MEDS: LABETALOL HCL 100 MG TABLET. PO SCH ×2 (12:00→20:35)
--- NOTE | 2018-08-28 14:20 | PDOC ---
PROGRESS NOTES Chief Complaint Chief Complaint Seizures, provoked likely with high Cr, metabolic acidosis, and HTN Posterior reversible encephalopathy syndrome. Hypertensive emergency. Metabolic/hypertensive encephalopathy. Renal failure on HD Respiratory distress and metabolic acidosis secondary to seizure activity. Obesity. Tobacco dependence. plan: fu with neuro, cont keppra fu with renal, cont HD add labetolol and amlodipine for HTN, labetolol iv prn dvt ppx neg EEG History of Present Illness History of Present Illness ROS: no fever, chills, sob or chest pain high BP, but pt said she was taken off HTN meds since HD denies DM2 cannot tell me why on HD, said possible 2/2 HTN Vitals Vitals Vital Signs Date Time Temp Pulse Resp B/P (MAP) Pulse Ox O2 Delivery O2 Flow Rate FiO2 08/28/18 12:00 88 146/106 08/28/18 11:01 98.0 18 99 Room Air 98.0 08/28/18 08:07 2.0 Physical Exam General: Alert, Oriented X3, Cooperative, No acute distress Heart: Regular rate, Normal S1, Normal S2 Lungs: Clear, Other (no crackles or wheezes) Abdomen: Normal bowel sounds, Soft, No tenderness Extremities: No clubbing, No cyanosis, Other (palpable thrill L radial pulse) Skin: No breakdown, No significant lesion Labs LABS Laboratory Tests Test 08/28/18 04:43 Sodium Level 139 mmol/L (136-145) Potassium Level 3.7 mmol/L (3.5-5.1) Chloride Level 99 mmol/L (98-107) Carbon Dioxide Level 24 mmol/L (21-32) Anion Gap 16 (6-14) Blood Urea Nitrogen 80 mg/dL (7-20) Creatinine 14.7 mg/dL (0.6-1.0) Estimated GFR (Cockcroft-Gault) 3.2 Glucose Level 85 mg/dL (70-99) Calcium Level 8.7 mg/dL (8.5-10.1) Phosphorus Level 8.6 mg/dL (2.6-4.7) Albumin 3.4 g/dL (3.4-5.0) Assessment and Plan Assessmemt and Plan Problems Medical Problems: (1) ESRD (end stage renal disease) on dialysis Status: Acute (2) Recurrent seizures Status: Acute Comment Review of Relevant I have reviewed the following items tavia (where applicable) has been applied. Labs Laboratory Tests Test 08/26/18 17:14 08/26/18 23:47 08/27/18 04:35 08/28/18 04:43 O2 Saturation 99 % (92-99) Arterial Blood pH 7.19 (7.35-7.45) Arterial Blood pCO2 at Patient Temp 28 mmHg (35-46) Arterial Blood pO2 at Patient Temp 200 mmHg (85-108) Arterial Blood HCO3 11 mmol/L (21-28) Arterial Blood Base Excess -16 mmol/L (-3-3) FiO2 21 Nasal Screen MRSA (PCR) Negative (Negative) White Blood Count 7.3 x10^3/uL (4.0-11.0) Red Blood Count 4.14 x10^6/uL (3.50-5.40) Hemoglobin 12.6 g/dL (12.0-15.5) Hematocrit 37.3 % (36.0-47.0) Mean Corpuscular Volume 90 fL (79-100) Mean Corpuscular Hemoglobin 31 pg (25-35) Mean Corpuscular Hemoglobin Concent 34 g/dL (31-37) Red Cell Distribution Width 16.4 % (11.5-14.5) Platelet Count 226 x10^3/uL (140-400) Neutrophils (%) (Auto) 84 % (31-73) Lymphocytes (%) (Auto) 11 % (24-48) Monocytes (%) (Auto) 4 % (0-9) Eosinophils (%) (Auto) 0 % (0-3) Basophils (%) (Auto) 1 % (0-3) Neutrophils # (Auto) 6.1 x10^3uL (1.8-7.7) Lymphocytes # (Auto) 0.8 x10^3/uL (1.0-4.8) Monocytes # (Auto) 0.3 x10^3/uL (0.0-1.1) Eosinophils # (Auto) 0.0 x10^3/uL (0.0-0.7) Basophils # (Auto) 0.0 x10^3/uL (0.0-0.2) Sodium Level 138 mmol/L (136-145) 139 mmol/L (136-145) Potassium Level 3.8 mmol/L (3.5-5.1) 3.7 mmol/L (3.5-5.1) Chloride Level 100 mmol/L (98-107) 99 mmol/L (98-107) Carbon Dioxide Level 23 mmol/L (21-32) 24 mmol/L (21-32) Anion Gap 15 (6-14) 16 (6-14) Blood Urea Nitrogen 68 mg/dL (7-20) 80 mg/dL (7-20) Creatinine 13.0 mg/dL (0.6-1.0) 14.7 mg/dL (0.6-1.0) Estimated GFR (Cockcroft-Gault) 3.7 3.2 Glucose Level 99 mg/dL (70-99) 85 mg/dL (70-99) Calcium Level 9.2 mg/dL (8.5-10.1) 8.7 mg/dL (8.5-10.1) Phosphorus Level 8.6 mg/dL (2.6-4.7) Albumin 3.4 g/dL (3.4-5.0) Laboratory Tests Test 08/28/18 04:43 Sodium Level 139 mmol/L (136-145) Potassium Level 3.7 mmol/L (3.5-5.1) Chloride Level 99 mmol/L (98-107) Carbon Dioxide Level 24 mmol/L (21-32) Anion Gap 16 (6-14) Blood Urea Nitrogen 80 mg/dL (7-20) Creatinine 14.7 mg/dL (0.6-1.0) Estimated GFR (Cockcroft-Gault) 3.2 Glucose Level 85 mg/dL (70-99) Calcium Level 8.7 mg/dL (8.5-10.1) Phosphorus Level 8.6 mg/dL (2.6-4.7) Albumin 3.4 g/dL (3.4-5.0) Medications Current Medications Ondansetron HCl (Zofran) 4 mg 1X ONCE IV Last administered on 08/26/18at 13:45 ; Start 08/26/18 at 13:45; Stop 08/26/18 at 13:46; Status DC Labetalol HCl (Normodyne Iv Push) 10 mg 1X ONCE IVP Last administered on at 13:46; Start 08/26/18 at 13:45; Stop 08/26/18 at 13:46; Status DC Labetalol HCl (Normodyne Iv Push) 20 mg STK-MED ONCE IVP ; Start 08/26/18 at 13: 42; Stop 08/26/18 at 13:43; Status DC Ondansetron HCl (Zofran) 4 mg STK-MED ONCE .ROUTE ; Start 08/26/18 at 13:42; Stop 08/26/18 at 13:43; Status DC Lorazepam (Ativan) 2 mg STK-MED ONCE .ROUTE ; Start 08/26/18 at 14:12; Stop 08/26/18 at 14:13; Status DC Lorazepam (Ativan) 2 mg 1X ONCE IV Last administered on 08/26/18at 14:19; Start 08/26/18 at 14:15; Stop 08/26/18 at 14:16; Status DC Lorazepam (Ativan) 2 mg 1X STAT IV Last administered on 08/26/18at 16:02; Start 08/26/18 at 16:09; Stop 08/26/18 at 16:16; Status DC Lorazepam (Ativan) 2 mg PRN Q4HRS PRN IV ANXIETY / AGITATION; Start 08/26/18 at 17:15 Levetiracetam 750 mg/Dextrose 107.5 ml @ 440 mls/hr 1X ONCE IV Last administered on 08/26/18at 17:42; Start 08/26/18 at 17:30; Stop 08/26/18 at 17:44 ; Status DC Levetiracetam 500 mg/Dextrose 105 ml @ 420 mls/hr Q12HR IV Last administered on 08/28/18at 09:17; Start 08/27/18 at 09:00 Heparin Sodium (Porcine) (Heparin Sodium) 5,000 unit BID SQ Last administered on 08/28/18at 09:24; Start 08/26/18 at 21:00 Labetalol HCl (Normodyne Iv Push) 20 mg 1X ONCE IVP Last administered on at 17:40; Start 08/26/18 at 17:15; Stop 08/26/18 at 17:16; Status DC Lorazepam (Ativan) 2 mg PRN Q2HR PRN IV SEIZURE Last administered on 08/26/18at 17:03; Start 08/26/18 at 17:15 Sodium Bicarbonate (Sodium Bicarb Adult 8.4% Syr) 50 meq STK-MED ONCE .ROUTE ; Start 08/26/18 at 17:34; Stop 08/26/18 at 17:35; Status DC Sodium Bicarbonate (Sodium Bicarb Adult 8.4% Syr) 50 meq 1X ONCE IV Last administered on 08/26/18at 17:41; Start 08/26/18 at 17:45; Stop 08/26/18 at 17:46 ; Status DC Sodium Bicarbonate 50 meq/Sodium Chloride 1,050 ml @ 80 mls/hr Q13H8M IV Last administered on 08/26/18at 17:58; Start 08/26/18 at 18:00; Stop 08/27/18 at 07:07 ; Status DC Sodium Chloride 1,000 ml @ 1,000 mls/hr Q1H PRN IV hypotension; Start 08/26/18 at 17:55; Stop 08/26/18 at 23:54; Status DC Sodium Chloride 1,000 ml @ 400 mls/hr Q2H30M PRN IV PATENCY; Start 08/26/18 at 17:55; Stop 08/27/18 at 05:54; Status DC Info (PHARMACY MONITORING -- do not chart) 1 each PRN DAILY PRN MC SEE COMMENTS ; Start 08/26/18 at 18:00; Status UNV Info (PHARMACY MONITORING -- do not chart) 1 each PRN DAILY PRN MC SEE COMMENTS ; Start 08/26/18 at 18:00 Nicardipine HCl 50 mg/Sodium Chloride 270 ml @ 27 mls/hr CONT PRN IV SEE I/O RECORD Last administered on 08/27/18at 08:46; Start 08/26/18 at 18:15; Stop 08/28 at 11:22; Status DC Influenza Virus Vaccine (Afluria Trivalent 0621-0930 Syringe) 0.5 ml ONCE ONCE VAX IM ; Start 08/26/18 at 18:45; Stop 08/26/18 at 18:46; Status DC Acetaminophen/ Hydrocodone Bitart (Lortab 5/325) 1 tab PRN Q4HRS PRN PO PAIN Last administered on 08/27/18at 01:54; Start 08/27/18 at 01:45 Metoprolol Tartrate (Lopressor Vial) 5 mg PRN Q4HRS PRN IVP HYPERTENSION, SEE COMMENTS Last administered on 08/28/18at 07:57; Start 08/27/18 at 01:45; Stop at 11:21; Status DC Ondansetron HCl (Zofran) 4 mg PRN Q6HRS PRN IV NAUSEA/VOMITING; Start 08/27/18 at 12:00; Stop 08/28/18 at 11:23; Status DC Diltiazem HCl (Cardizem) 30 mg PRN Q8HRS PRN PO HYPERTENSION, SEE COMMENTS; Start 08/27/18 at 15:00; Stop 08/28/18 at 11:21; Status DC Acetaminophen (Tylenol) 650 mg PRN Q6HRS PRN PO FEVER; Start 08/28/18 at 11:30 Ondansetron HCl (Zofran) 4 mg PRN Q6HRS PRN IV NAUSEA/VOMITING; Start 08/28/18 at 11:30 Morphine Sulfate (Morphine Sulfate) 2 mg PRN Q2HR PRN IV MODERATE TO SEVERE PAIN; Start 08/28/18 at 11:30 Tramadol HCl (Ultram) 50 mg PRN Q6HRS PRN PO MILD TO MODERATE PAIN; Start 08/28 at 11:30 Docusate Sodium (Colace) 100 mg PRN DAILY PRN PO CONSTIPATION; Start 08/28/18 at 11:30 Labetalol HCl (Normodyne Iv Push) 20 mg PRN Q2HR PRN IVP HYPERTENSION, SEE COMMENTS; Start 08/28/18 at 11:30 Labetalol HCl (Trandate) 100 mg BID PO ; Start 08/28/18 at 12:00 Active Scripts Active Reported Marie-Enrico Rx Tablet (Vit B Cmplx 3/Fa/Vit C/Biotin) 1 Each Tablet 1 Tab PO DAILY Ferric Citrate 210 Mg Tablet 210 Mg PO TIDWMEALS Vitals/I & O Vital Sign - Last 24 Hours 08/27/18 08/27/18 08/27/18 08/27/18 15:00 20:00 20:00 20:59 Temp 97.8 97.7 97.8 97.7 Pulse 101 101 Resp 20 B/P (MAP) 131/85 (100) 161/104 (123) 161/104 Pulse Ox 98 99 O2 Delivery Room Air Room Air Room Air 08/27/18 08/28/18 08/28/18 08/28/18 23:08 03:04 03:10 07:35 Temp 98.7 98.1 98.0 98.7 98.1 98.0 Pulse 93 93 105 90 Resp 20 18 18 B/P (MAP) 155/99 (117) 152/111 152/111 (125) 170/113 (132) Pulse Ox 97 95 95 O2 Delivery Room Air Room Air Room Air 08/28/18 08/28/18 08/28/18 08/28/18 07:57 08:07 11:01 12:00 Temp 98.0 98.0 Pulse 90 88 88 Resp 18 B/P (MAP) 170/113 146/106 (119) 146/106 Pulse Ox 99 O2 Delivery Room Air Room Air O2 Flow Rate 2.0 Intake and Output 08/27/18 08/27/18 08/28/18 15:00 23:00 07:00 Intake Total 105 ml 0 ml 450 ml Output Total 140 ml Balance -35 ml 0 ml 450 ml MARIBETH CONTE MD Aug 28, 2018 14:20
[2018-08-28] MEDS: amLODIPine BESYLATE 10 MG TABLET PO SCH (15:47)
[2018-08-28] MEDS ORDERED: DIALYSIS PATIENT. MC PRN ×2 (16:00)
--- NOTE | 2018-08-28 17:05 | PDOC ---
PROGRESS NOTES Assessment Assessment Seizure, provoked. PRES syndrome. Hypertensive emergency, BP 200/116 mmHg. Metabolic encephalopathy. Hypertensive encephalopathy. Renal failure, not compliant to dialysis, missed dialysis since 08/15/18. HTN. Obesity. RECOMMENDATIONS/PLAN: Keppra 500 mg po bid for 3 months, then taper off. Dialysis. Treat medical diseases. BP control. Discussed with her mother at bedside on 08/27/18. EEG on 08/27/18: Encephalopathy. No seizure activity. Brain MRI on 08/27/18: in consistent with PRES. HISTORY OF THE PRESENT ILLNESS: 18-y-old female patient with Hx of renal failure stated to have dialysis in , but she missed dialysis due to not compliant to the treatment. She had a seizure or seizure like episode to be brought to the ER of [facility] and was admitted to the hospital. She then had more seizures want to status to be transferred to ICU. Per her sister, she had a seizure about 4 months ago and was seen in [facility] thought was related to UTI. PAST MEDICAL HISTORY: HTN. Renal failure. PAST SURGICAL HISTORY: Dialysis fistula placement. ALLERGY: Unknown MEDICATIONS: Refer to [facility] FAMILY HISTORY: HTN. SOCIAL HISTORY: On disability. Lives with her mother and her 4 year boy. Denies smoking, drinking, and illicit drug use. REVIEW OF SYSTEMS: Constitutional: Obesity. Head: No traumatic brain or head injury. Skin: No edema, or rash. Ear: No infection, tinnitus. Eyes: No vision loss or color blindness. Nose: No bleeding or purulent discharges. Hearing: No hearing decrease. Neck: No injury. Breast: No history of cancer, masses,or discharges. Cardiac: HTN. Pulmonary: No pneumonia, COPD. GI: No GI ulcer, GI bleeding. Urinary/genital: Renal failure, UTI. Endocrinologic: Obesity. Skeletomuscular: No muscular atrophy, deformity. Neurological: see HP. Psychiatric: Denies drug use/abuse. Otherwise, not [id number] review of systems. PHYSICAL EXAMINATION: General appearance is in subacute distress. HEENT: Normocephalic and nontraumatic. Eyes, nose, ears, and throat are unremarkable. Neck is supple. No lymphadenopathy. No bruits are heard over the carotid artery. No crepitus. Cardiovascular: S1, S2, regular rate and rhythm. Pulmonary: Clear to auscultation bilaterally. Abdomen: Bowel sounds are positive. Extremities: No rash, lesions, or edema. No restriction of range of motion NEUROLOGICAL EXAMINATION: Alert. Oriented to time, place and person. PERRL. EOMI. CN: no focal findings. Muscle tone: within normal. Muscle strength: 5 DTR: 2 Plantar reflex: Flexor response bilaterally Gait: Normal. Sensory exam: no abnormal findings. No cerebellar signs elicited. F-T-N test fine Objective Objective Vital Signs Date Time Temp Pulse Resp B/P (MAP) Pulse Ox O2 Delivery O2 Flow Rate FiO2 08/28/18 15:47 75 176/104 08/28/18 11:01 98.0 18 99 Room Air 98.0 08/28/18 08:07 2.0 Intake and Output 08/28/18 07:00 Intake Total 555 ml Output Total 140 ml Balance 415 ml Intake Oral 450 ml IV Total 105 ml Output Urine Total 140 ml # Voids 6 Vitals Signs Vitals VS - Last 72 Hours, by Label Date Time Temp Pulse Resp B/P (MAP) Pulse Ox O2 Delivery O2 Flow Rate FiO2 08/28/18 15:47 75 176/104 08/28/18 12:00 88 146/106 08/28/18 11:01 98.0 88 18 146/106 (119) 99 Room Air 98.0 08/28/18 08:07 Room Air 2.0 08/28/18 07:57 90 170/113 08/28/18 07:35 98.0 90 18 170/113 (132) 95 Room Air 98.0 08/28/18 03:10 98.1 105 18 152/111 (125) 95 Room Air 98.1 08/28/18 03:04 93 152/111 08/27/18 23:08 98.7 93 20 155/99 (117) 97 Room Air 98.7 08/27/18 20:59 101 161/104 08/27/18 20:00 97.7 101 20 161/104 (123) 99 Room Air 97.7 08/27/18 20:00 Room Air 08/27/18 15:00 97.8 131/85 (100) 98 Room Air 97.8 08/27/18 12:00 98.4 86 18 147/79 (101) 100 Room Air 98.4 08/27/18 11:00 90 17 132/71 (91) 100 Room Air 08/27/18 10:30 100 137/70 08/27/18 10:15 101 17 142/74 (96) 100 Room Air 08/27/18 10:00 108 18 136/64 (88) Room Air 08/27/18 09:00 128 18 154/67 (96) 100 Room Air 08/27/18 08:00 98.2 106 16 138/66 (90) 98 Room Air 98.2 08/27/18 08:00 Room Air 08/27/18 07:00 104 16 144/79 (100) 98 Room Air Laboratory Laboratory Laboratory Tests Test 08/28/18 04:43 Sodium Level 139 mmol/L (136-145) Potassium Level 3.7 mmol/L (3.5-5.1) Chloride Level 99 mmol/L (98-107) Carbon Dioxide Level 24 mmol/L (21-32) Anion Gap 16 (6-14) Blood Urea Nitrogen 80 mg/dL (7-20) Creatinine 14.7 mg/dL (0.6-1.0) Estimated GFR (Cockcroft-Gault) 3.2 Glucose Level 85 mg/dL (70-99) Calcium Level 8.7 mg/dL (8.5-10.1) Phosphorus Level 8.6 mg/dL (2.6-4.7) Albumin 3.4 g/dL (3.4-5.0) Medication Medications Current Medications Acetaminophen (Tylenol) 650 mg PRN Q6HRS PRN PO FEVER; Start 08/28/18 at 11:30 Amlodipine Besylate (Norvasc) 10 mg DAILY PO Last administered on 08/28/18at 15: 47; Start 08/28/18 at 15:00 Docusate Sodium (Colace) 100 mg PRN DAILY PRN PO CONSTIPATION; Start 08/28/18 at 11:30 Info (PHARMACY MONITORING -- do not chart) 1 each PRN DAILY PRN MC SEE COMMENTS ; Start 08/28/18 at 16:00; Stop 08/28/18 at 16:00; Status DC Info (PHARMACY MONITORING -- do not chart) 1 each PRN DAILY PRN MC SEE COMMENTS ; Start 08/28/18 at 16:00; Stop 08/28/18 at 16:00; Status DC Labetalol HCl (Normodyne Iv Push) 20 mg PRN Q2HR PRN IVP HYPERTENSION, SEE COMMENTS; Start 08/28/18 at 11:30 Labetalol HCl (Trandate) 100 mg BID PO ; Start 08/28/18 at 12:00 Morphine Sulfate (Morphine Sulfate) 2 mg PRN Q2HR PRN IV MODERATE TO SEVERE PAIN; Start 08/28/18 at 11:30 Ondansetron HCl (Zofran) 4 mg PRN Q6HRS PRN IV NAUSEA/VOMITING; Start 08/28/18 at 11:30 Tramadol HCl (Ultram) 50 mg PRN Q6HRS PRN PO MILD TO MODERATE PAIN; Start 08/28 at 11:30 Comment Review of Relevant I have reviewed the following items tavia (where applicable) has been applied. ADALBERTO ROSS MD Aug 28, 2018 17:05
[2018-08-28 19:20] VITALS: BP 169/105
[2018-08-28 23:20] VITALS: BP 157/103
[2018-08-29 03:15] VITALS: BP 150/104
[2018-08-29 07:29] VITALS: BP 146/97
[2018-08-29] MEDS ORDERED: IV NORMAL SALINE 1000ML BAG 1,000 ML IV PRN ×2 (08:25)
[2018-08-29] MEDS ORDERED: DIALYSIS PATIENT. MC PRN (08:30)
[2018-08-29] MEDS: HEPARIN for SUB-Q USE 5,000 UNIT/ML VIAL. SQ SCH (09:00)
--- NOTE | 2018-08-29 15:15 | PDOC ---
PROGRESS NOTES Assessment Assessment Seizure, provoked. PRES syndrome. Hypertensive emergency, BP 200/116 mmHg. Metabolic encephalopathy. Hypertensive encephalopathy. Renal failure, not compliant to dialysis, missed dialysis since 08/15/18. HTN. Obesity. RECOMMENDATIONS/PLAN: Keppra 500 mg po bid for 3 months, then taper off. Dialysis. Treat medical diseases. BP control. Discussed with her mother at bedside on 08/27/18. FU with Neurology if has further seizures. FU with PCP. EEG on 08/27/18: Encephalopathy. No seizure activity. Brain MRI on 08/27/18: in consistent with PRES. HISTORY OF THE PRESENT ILLNESS: 18-y-old female patient with Hx of renal failure stated to have dialysis in , but she missed dialysis due to not compliant to the treatment. She had a seizure or seizure like episode to be brought to the ER of [facility] and was admitted to the hospital. She then had more seizures want to status to be transferred to ICU. Per her sister, she had a seizure about 4 months ago and was seen in [facility] thought was related to UTI. PAST MEDICAL HISTORY: HTN. Renal failure. PAST SURGICAL HISTORY: Dialysis fistula placement. ALLERGY: Unknown MEDICATIONS: Refer to [facility] FAMILY HISTORY: HTN. SOCIAL HISTORY: On disability. Lives with her mother and her 4 year boy. Denies smoking, drinking, and illicit drug use. REVIEW OF SYSTEMS: Constitutional: Obesity. Head: No traumatic brain or head injury. Skin: No edema, or rash. Ear: No infection, tinnitus. Eyes: No vision loss or color blindness. Nose: No bleeding or purulent discharges. Hearing: No hearing decrease. Neck: No injury. Breast: No history of cancer, masses,or discharges. Cardiac: HTN. Pulmonary: No pneumonia, COPD. GI: No GI ulcer, GI bleeding. Urinary/genital: Renal failure, UTI. Endocrinologic: Obesity. Skeletomuscular: No muscular atrophy, deformity. Neurological: see HP. Psychiatric: Denies drug use/abuse. Otherwise, not [id number] review of systems. PHYSICAL EXAMINATION: General appearance is in no acute distress. HEENT: Normocephalic and nontraumatic. Eyes, nose, ears, and throat are unremarkable. Neck is supple. No lymphadenopathy. No bruits are heard over the carotid artery. No crepitus. Cardiovascular: S1, S2, regular rate and rhythm. Pulmonary: Clear to auscultation bilaterally. Abdomen: Bowel sounds are positive. Extremities: No rash, lesions, or edema. No restriction of range of motion NEUROLOGICAL EXAMINATION: Alert. Oriented to time, place and person. PERRL. EOMI. CN: no focal findings. Muscle tone: within normal. Muscle strength: 5 DTR: 2+ Plantar reflex: Flexor response bilaterally Gait: Normal. Sensory exam: no abnormal findings. No cerebellar signs elicited. F-T-N test fine Objective Objective Vital Signs Date Time Temp Pulse Resp B/P (MAP) Pulse Ox O2 Delivery O2 Flow Rate FiO2 08/29/18 08:00 Room Air 2.0 08/29/18 07:29 98.2 108 18 146/97 (113) 94 98.2 Intake and Output 08/29/18 07:00 Intake Total 840 ml Balance 840 ml Intake Oral 840 ml # Voids 4 # Bowel Movements 1 Vitals Signs Vitals VS - Last 72 Hours, by Label Date Time Temp Pulse Resp B/P (MAP) Pulse Ox O2 Delivery O2 Flow Rate FiO2 08/29/18 08:00 Room Air 2.0 08/29/18 07:29 98.2 108 18 146/97 (113) 94 Room Air 98.2 08/29/18 03:15 98.0 93 18 150/104 (119) 99 Room Air 98.0 08/28/18 23:20 98.1 79 18 157/103 (121) 100 Room Air 98.1 08/28/18 20:35 75 161/105 08/28/18 20:00 Room Air 08/28/18 19:20 98.4 95 18 169/105 (126) 100 Room Air 98.4 08/28/18 15:47 75 176/104 08/28/18 12:00 88 146/106 08/28/18 11:01 98.0 88 18 146/106 (119) 99 Room Air 98.0 08/28/18 08:07 Room Air 2.0 08/28/18 07:57 90 170/113 08/28/18 07:35 98.0 90 18 170/113 (132) 95 Room Air 98.0 Medication Medications Current Medications Info (PHARMACY MONITORING -- do not chart) 1 each PRN DAILY PRN MC SEE COMMENTS ; Start 08/28/18 at 16:00; Stop 08/28/18 at 16:00; Status DC Info (PHARMACY MONITORING -- do not chart) 1 each PRN DAILY PRN MC SEE COMMENTS ; Start 08/28/18 at 16:00; Stop 08/28/18 at 16:00; Status DC Info (PHARMACY MONITORING -- do not chart) 1 each PRN DAILY PRN MC SEE COMMENTS ; Start 08/29/18 at 08:30 Levetiracetam (Keppra) 500 mg BID PO ; Start 08/29/18 at 21:00 Sodium Chloride 1,000 ml @ 400 mls/hr Q2H30M PRN IV PATENCY; Start 08/29/18 at 08:25; Stop 08/29/18 at 20:24 Sodium Chloride 1,000 ml @ 1,000 mls/hr Q1H PRN IV hypotension; Start 08/29/18 at 08:25; Stop 08/29/18 at 14:24; Status DC Comment Review of Relevant I have reviewed the following items tavia (where applicable) has been applied. ADALBERTO ROSS MD Aug 29, 2018 15:15
[2018-08-29 15:21] VITALS: BP 177/121
[2018-08-29] MEDS ORDERED: LEVE500T56 PO (15:30)
[2018-08-29] MEDS ORDERED: LABE100T5 PO (15:30)
[2018-08-29] MEDS ORDERED: AMLO10TA6 PO (15:30)
--- NOTE | 2018-08-29 15:36 | PDOC3 ---
Discharge Summary [facility] Date of Admission: Aug 26, 2018 Discharge Date: Aug 29, 2018 Admitting Diagnosis Seizures, provoked likely with high Cr, metabolic acidosis, and HTN, Neg EEG Posterior reversible encephalopathy syndrome. Hypertensive emergency. Metabolic/hypertensive encephalopathy. Renal failure on HD Respiratory distress and metabolic acidosis secondary to seizure activity. Obesity. Tobacco dependence. Final Diagnosis CONSULTS neuro renal Brief Hospital Course Ms. Gomez is a 18 old F, came to ER for one time seizure like activity at home. She was then transferred down to ICU since cont having another few times of seizure on the floor. Keppra started. EEG done, neg for epilepsy. MRI brain showed PRES. HTN urgency. labetolol and amlodipine added. Pt missed her HD for 1 week, got 2 times here. Cr was 19 in ER, down to 13. stable to dc home ,cont keppra for 3 months ,then taper as per neuro. dc time 35min. talked to family for 20min. General: Alert, Oriented X3, Cooperative, No acute distress Heart: Regular rate, Normal S1, Normal S2 Lungs: Clear, Other (no crackles or wheezes) Abdomen: Normal bowel sounds, Soft, No tenderness Extremities: No clubbing, No cyanosis, Other (palpable thrill L radial pulse) Skin: No breakdown, No significant lesion Patient History: Unknown Disposition home CONDITION AT DISCHARGE: Improved, Stable Scheduled Amlodipine Besylate (Amlodipine Besylate), 10 MG PO DAILY Ferric Citrate (Ferric Citrate), 210 MG PO TIDWMEALS, (Reported) Labetalol Hcl (Labetalol Hcl), 100 MG PO BID Levetiracetam (Keppra), 500 MG PO BID Vit B Cmplx 3/Fa/Vit C/Biotin (Marie-Enrico Rx Tablet), 1 TAB PO DAILY, (Reported) MARIBETH CONTE MD Aug 29, 2018 15:36
[2018-08-29] MEDS: LABETALOL HCL 100 MG TABLET. PO SCH (16:04)
[2018-08-29 16:05] VITALS: BP 177/121
[2018-08-29] MEDS: amLODIPine BESYLATE 10 MG TABLET PO SCH (16:05)
--- NOTE | 2018-08-29 16:38 | PDOC ---
SUBJECTIVE ROS No new concerns OBJECTIVE Vital Signs Vital Signs Date Time Temp Pulse Resp B/P (MAP) Pulse Ox O2 Delivery O2 Flow Rate FiO2 08/29/18 16:05 105 177/121 08/29/18 15:21 98.1 18 95 Room Air 98.1 08/29/18 08:00 2.0 I & 0 Intake and Output 08/29/18 07:00 Intake Total 840 ml Balance 840 ml Intake Oral 840 ml # Voids 4 # Bowel Movements 1 PHYSICAL EXAM Physical Exam General appearance - NAD HEENT: OM moist Neck - Supple Cardiovascular: S1, S2, regular rate and rhythm. Pulmonary: Clear to auscultation bilaterally, Non labored Abdomen: Soft, NT Extremities:No edema. - Titus + Neuro- AxO x 3, DIAGNOSIS/ASSESSMENT Assessment & Plan ESRD- MWF at [facility] multiple treatments Hospitalized with Azotemia, Seizures- emergent Dialysis 08/26 seen on HD, tolerating well continue as Ordered Seizures- Neurology following MRI (without Contrast) as per Neuro - negative HTN-On Antihypretensives currently Not on any meds at home Hyperphosphatemia- sec to ESRD/Missing HD Discussed with Pt and GAGE, COMMENT/RELEVANT DATA Meds Current Medications Medications (Trade) Dose Ordered Sig/Prosper Start Time Stop Time Status Last Admin Dose Admin Acetaminophen (Tylenol) 650 mg PRN Q6HRS PRN 08/28/18 11:30 08/29/18 16:34 DC Acetaminophen/ Hydrocodone Bitart (Lortab 5/325) 1 tab PRN Q4HRS PRN 08/27/18 01:45 08/29/18 16:34 DC 08/27/18 01:54 1 TAB Amlodipine Besylate (Norvasc) 10 mg DAILY 08/28/18 15:00 08/29/18 16:34 DC 08/29/18 16:05 10 MG Diltiazem HCl (Cardizem) 30 mg PRN Q8HRS PRN 08/27/18 15:00 08/28/18 11:21 DC Docusate Sodium (Colace) 100 mg PRN DAILY PRN 08/28/18 11:30 08/29/18 16:34 DC Heparin Sodium (Porcine) (Heparin Sodium) 5,000 unit BID 08/26/18 21:00 08/29/18 16:34 DC 08/28/18 20:43 5,000 UNIT Influenza Virus Vaccine (Afluria Trivalent [id number] Syringe) 0.5 ml ONCE ONCE 08/26/18 18:45 08/26/18 18:46 DC Info (PHARMACY MONITORING -- do not chart) 1 each PRN DAILY PRN 08/29/18 08:30 08/29/18 16:34 DC Labetalol HCl (Normodyne Iv Push) 20 mg PRN Q2HR PRN 08/28/18 11:30 08/29/18 16:34 DC Labetalol HCl (Trandate) 100 mg BID 08/28/18 12:00 08/29/18 16:34 DC 08/29/18 16:04 100 MG Levetiracetam (Keppra) 500 mg BID 08/29/18 21:00 08/29/18 21:00 DC Levetiracetam 500 mg/Dextrose 105 ml @ 420 mls/hr Q12HR 08/27/18 09:00 08/29/18 11:42 DC 08/28/18 20:34 420 MLS/HR Levetiracetam 750 mg/Dextrose 107.5 ml @ 440 mls/hr 1X ONCE 08/26/18 17:30 08/26/18 17:44 DC 08/26/18 17:42 440 MLS/HR Lorazepam (Ativan) 2 mg PRN Q2HR PRN 08/26/18 17:15 08/29/18 16:34 DC 08/26/18 17:03 2 MG Metoprolol Tartrate (Lopressor Vial) 5 mg PRN Q4HRS PRN 08/27/18 01:45 08/28/18 11:21 DC 08/28/18 07:57 5 MG Morphine Sulfate (Morphine Sulfate) 2 mg PRN Q2HR PRN 08/28/18 11:30 08/29/18 16:34 DC Nicardipine HCl 50 mg/Sodium Chloride 270 ml @ 27 mls/hr CONT PRN 08/26/18 18:15 08/28/18 11:22 DC 08/27/18 08:46 25 MLS/HR Ondansetron HCl (Zofran) 4 mg PRN Q6HRS PRN 08/28/18 11:30 08/29/18 16:34 DC Sodium Bicarbonate 50 meq/Sodium Chloride 1,050 ml @ 80 mls/hr Q13H8M 08/26/18 18:00 08/27/18 07:07 DC 08/26/18 17:58 80 MLS/HR Sodium Bicarbonate (Sodium Bicarb Adult 8.4% Syr) 50 meq 1X ONCE 08/26/18 17:45 08/26/18 17:46 DC 08/26/18 17:41 50 MEQ Sodium Chloride 1,000 ml @ 400 mls/hr Q2H30M PRN 08/29/18 08:25 08/29/18 16:34 DC Tramadol HCl (Ultram) 50 mg PRN Q6HRS PRN 08/28/18 11:30 08/29/18 16:34 DC Results All relevant outside records, renal labs, imaging studies, telemetry/EKG's were reviewed. CONNER BUSTOS MD Aug 29, 2018 16:38
[2018-08-29] MEDS ORDERED: levETIRAcetam 500 MG TABLET PO SCH (21:00)
== END 2018-08-29 16:16 | disposition home or self-care (01) | DRG 100 ==
LOC: ER 12:29 → 6 SOUTH 14:30 → 1 WEST ICU 17:13 → 6 SOUTH 08-27 15:00
PROVIDERS: ADMIT Family Medicine; ATTEND Family Medicine
PROC: 5A1D70Z Performance of Urinary Filtration, Intermittent, Less than 6 Hours Per Day (ICD-10-PCS; principal; 2018-08-26)
PROC: 5A1D70Z Performance of Urinary Filtration, Intermittent, Less than 6 Hours Per Day (ICD-10-PCS; 2018-08-29)
DX: G40.901 Epilepsy, unspecified, not intractable, with status epilepticus (principal); N18.6 End stage renal disease; I67.83 Posterior reversible encephalopathy syndrome; E87.2 Acidosis; I12.0 Hypertensive chronic kidney disease with stage 5 chronic kidney disease or end stage renal disease; N17.9 Acute kidney failure, unspecified; I16.1 Hypertensive emergency; I67.4 Hypertensive encephalopathy; E83.39 Other disorders of phosphorus metabolism; E66.9 Obesity, unspecified; F17.200 Nicotine dependence, unspecified, uncomplicated; R06.03 Acute respiratory distress; Z99.2 Dependence on renal dialysis; Z82.49 Family history of ischemic heart disease and other diseases of the circulatory system; Z68.31 Body mass index [BMI] 31.0-31.9, adult; Z91.15 Patient's noncompliance with renal dialysis
CPT/HCPCS: 36415; 36600; 70450; 70544; 70551; 80048; 80053; 80069; 80307; 82805; 83735; 84100; 84443; 84703; 85007; 85025; 87641; 95816; 96374; 96375; J1644; J1953; J2060; J2405; J3490; J7030; J7050; 99285-25

== ENCOUNTER 2020-08-07 18:32 | Emergency (ER) | payer MEDICARE ==
[~2020-08-07] VITALS: Ht 160 cm; Wt 92.0 kg
[~2020-08-07 18:32] MED LIST changes: +AMLO-187 PO; +FERR210T PO; +LEVE500T56 PO; +VIT1TABL71 PO
--- NOTE | 2020-08-07 19:14 | PHYS DOC ---
Past Medical History Past Medical History: Renal Failure Past Surgical History: Other Additional Past Surgical Histo: Dialysis shunt Smoking Status: Former Smoker Alcohol Use: None Drug Use: None General Adult EDM: Chief Complaint: DRUG ABUSE HPI: HPI: History obtained from patient and EMS. Patient is a 20-year-old female with no reported past medical history presents with chief complaint of somnolence. Per EMS the patient ingested and edible marijuana 2 hours prior to arrival. She states this is the second time she has done this. She denies any alcohol or other drug ingestions. She denies any pain related complaints. Denies headaches. Denies vomiting. Denies any confusion. Denies chest pain or shortness of breath. She is not sexually active. Unsure last menstrual period. Denies any SI or HI. Denies auditory visual hallucinations. No other complaints. Review of Systems: Review of Systems: Constitutional: Positive for general fatigue Eyes: Denies change in visual acuity. [] HENT: Denies nasal congestion or sore throat. [] Respiratory: Denies cough or shortness of breath. [] Cardiovascular: Denies chest pain or edema. [] GI: Denies abdominal pain, nausea, vomiting, bloody stools or diarrhea. [] : Denies dysuria. [] Musculoskeletal: Denies back pain or joint pain. [] Integument: Denies rash. [] Neurologic: Denies headache, focal weakness or sensory changes. [] Endocrine: Denies polyuria or polydipsia. [] Lymphatic: Denies swollen glands. [] Psychiatric: Denies depression or anxiety. [] Heart Score: Risk Factors: Risk Factors: DM, Current or recent (<one month) smoker, HTN, HLP, family history of CAD, obesity. Risk Scores: Score 0 - 3: 2.5% MACE over next 6 weeks - Discharge Home Score 4 - 6: 20.3% MACE over next 6 weeks - Admit for Clinical Observation Score 7 - 10: 72.7% MACE over next 6 weeks - Early Invasive Strategies Allergies: Allergies: Allergies Coded Allergies Type Severity Reaction Last Updated Verified No Known Drug Allergies 03/10/14 No Physical Exam: PE: Constitutional: Well developed, well nourished, no acute distress, non-toxic appearance. [] HENT: Normocephalic, atraumatic, bilateral external ears normal, oropharynx [address]rt[address], no oral exudates, nose normal. [] Eyes: PERRLA, EOMI, conjunctiva normal, no discharge. [] Neck: Normal range of motion, no tenderness, supple, no stridor. [] Cardiovascular:Heart rate regular rhythm, no murmur. Palpable thrill and audible bruit in the left upper extremity fistula. [] Lungs & Thorax: Bilateral breath sounds clear to auscultation [] Abdomen: soft, no tenderness, no masses, no pulsatile masses. [] : Chaperoned by RNHaylee. Minimal dark bloody oozing appreciated. Cervical os closed. No clots or tissue visualized. Skin: Warm, dry, no erythema, no rash. [] Back: No tenderness, no CVA tenderness. [] Extremities: No tenderness, no cyanosis, no clubbing, ROM intact, no edema. [] Neurologic: Somnolent. Arousable to voice. Alert with intact cognitive function. No aphasia, dysarthria, or neglect. GCS 14 E4V5M6. Pupils 3 mm briskly reactive b/l. No APD present. Cranial nerves 2-12 grossly intact; no facial asymmetry present, tongue midline, shoulder shrugging strength intact. Strength 5/5 and symmetric throughout. Light touch sensation intact throughout. Cerebellar testing appropriate without evidence of dysdiadochokinesia. DTR's 2+ in all 4 extremities. Negative pronator drift bilaterally. Gait deferred Psychologic: Affect normal, judgement normal, mood normal. [] Current Patient Data: Labs: Laboratory Tests Test 08/07/20 19:32 08/07/20 22:19 White Blood Count 13.2 x10^3/uL Red Blood Count 3.33 x10^6/uL Hemoglobin 10.3 g/dL Hematocrit 31.6 % Mean Corpuscular Volume 95 fL Mean Corpuscular Hemoglobin 31 pg Mean Corpuscular Hemoglobin Concent 33 g/dL Red Cell Distribution Width 18.7 % Platelet Count 297 x10^3/uL Neutrophils (%) (Auto) 93 % Lymphocytes (%) (Auto) 4 % Monocytes (%) (Auto) 3 % Eosinophils (%) (Auto) 0 % Basophils (%) (Auto) 0 % Neutrophils # (Auto) 12.3 x10^3/uL Lymphocytes # (Auto) 0.5 x10^3/uL Monocytes # (Auto) 0.4 x10^3/uL Eosinophils # (Auto) 0.0 x10^3/uL Basophils # (Auto) 0.0 x10^3/uL Segmented Neutrophils % 93 % Lymphocytes % 6 % Monocytes % 1 % Platelet Estimate Adequate Polychromasia Slight Hypochromasia Slight Anisocytosis Slight Maternal Serum HCG Beta Subunit 590682 mIU/mL Sodium Level 133 mmol/L Potassium Level 5.8 mmol/L Chloride Level 97 mmol/L Carbon Dioxide Level 27 mmol/L Anion Gap 9 Blood Urea Nitrogen 67 mg/dL Creatinine 12.5 mg/dL Estimated GFR (Cockcroft-Gault) 3.8 Glucose Level 88 mg/dL Calcium Level 8.1 mg/dL Ethyl Alcohol Level < 10 mg/dL Urine Collection Type Void Urine Color Yellow Urine Clarity Cloudy Urine pH 8.5 Urine Specific [place] 1.010 Urine Protein 100 mg/dL Urine Glucose (UA) 100 mg/dL Urine Ketones (Stick) Negative mg/dL Urine Blood Large Urine Nitrite Negative Urine Bilirubin Negative Urine Urobilinogen Dipstick 0.2 mg/dL Urine Leukocyte Esterase Small Urine RBC 6-10 /HPF Urine WBC 5-10 /HPF Urine Squamous Epithelial Cells Many /LPF Urine Bacteria Many /HPF Urine Opiates Screen Neg Urine Methadone Screen Neg Urine Barbiturates Neg Urine Phencyclidine Screen Neg Urine Amphetamine/Methamphetamine Neg Urine Benzodiazepines Screen Neg Urine Cocaine Screen Neg Urine Cannabinoids Screen Neg Urine Ethyl Alcohol Neg Current Medications Medications (Trade) Dose Ordered Sig/Prosper Route PRN Reason Start Time Stop Time Status Last Admin Dose Admin Sodium Chloride 1,000 ml @ 1,000 mls/hr 1X ONCE IV 08/07/20 19:15 08/07/20 20:14 DC Vital Signs: Laboratory Tests Test 08/07/20 19:32 08/07/20 22:19 White Blood Count 13.2 x10^3/uL Red Blood Count 3.33 x10^6/uL Hemoglobin 10.3 g/dL Hematocrit 31.6 % Mean Corpuscular Volume 95 fL Mean Corpuscular Hemoglobin 31 pg Mean Corpuscular Hemoglobin Concent 33 g/dL Red Cell Distribution Width 18.7 % Platelet Count 297 x10^3/uL Neutrophils (%) (Auto) 93 % Lymphocytes (%) (Auto) 4 % Monocytes (%) (Auto) 3 % Eosinophils (%) (Auto) 0 % Basophils (%) (Auto) 0 % Neutrophils # (Auto) 12.3 x10^3/uL Lymphocytes # (Auto) 0.5 x10^3/uL Monocytes # (Auto) 0.4 x10^3/uL Eosinophils # (Auto) 0.0 x10^3/uL Basophils # (Auto) 0.0 x10^3/uL Segmented Neutrophils % 93 % Lymphocytes % 6 % Monocytes % 1 % Platelet Estimate Adequate Polychromasia Slight Hypochromasia Slight Anisocytosis Slight Maternal Serum HCG Beta Subunit 012418 mIU/mL Sodium Level 133 mmol/L Potassium Level 5.8 mmol/L Chloride Level 97 mmol/L Carbon Dioxide Level 27 mmol/L Anion Gap 9 Blood Urea Nitrogen 67 mg/dL Creatinine 12.5 mg/dL Estimated GFR (Cockcroft-Gault) 3.8 Glucose Level 88 mg/dL Calcium Level 8.1 mg/dL Ethyl Alcohol Level < 10 mg/dL Urine Collection Type Void Urine Color Yellow Urine Clarity Cloudy Urine pH 8.5 Urine Specific [place] 1.010 Urine Protein 100 mg/dL Urine Glucose (UA) 100 mg/dL Urine Ketones (Stick) Negative mg/dL Urine Blood Large Urine Nitrite Negative Urine Bilirubin Negative Urine Urobilinogen Dipstick 0.2 mg/dL Urine Leukocyte Esterase Small Urine RBC 6-10 /HPF Urine WBC 5-10 /HPF Urine Squamous Epithelial Cells Many /LPF Urine Bacteria Many /HPF Urine Opiates Screen Neg Urine Methadone Screen Neg Urine Barbiturates Neg Urine Phencyclidine Screen Neg Urine Amphetamine/Methamphetamine Neg Urine Benzodiazepines Screen Neg Urine Cocaine Screen Neg Urine Cannabinoids Screen Neg Urine Ethyl Alcohol Neg Current Medications Medications (Trade) Dose Ordered Sig/Prosper Route PRN Reason Start Time Stop Time Status Last Admin Dose Admin Sodium Chloride 1,000 ml @ 1,000 mls/hr 1X ONCE IV 08/07/20 19:15 08/07/20 20:14 DC EKG: EKG: [] EKG consistent with normal sinus rhythm. Ventricular rate of 68 bpm. Jay normal. Intervals normal. Normal EKG. Radiology/Procedures: Radiology/Procedures: [facility] [address] [place] [address] IMAGING REPORT Signed PATIENT: WILMER FOSTER ACCOUNT: [id number] : 2000 LOCATION: ER AGE: 20 SEX: F EXAM STATUS: REG ER ORD. PHYSICIAN: RASHMI MENENDEZ DO REASON: abdominal pain. confirm IUP PROCEDURE: OB < 14 WKS OB ultrasound less than 14 weeks HISTORY: and abdominal pain and drug abuse Sonographic sedation appearance was performed by transabdominal technique and multiple static images were obtained. There is a single live intrauterine . The heartbeat is confirmed at 155 beats for minute. The crown-rump length of 2.0 cm corresponds with an 8 week 4 day gestational age and estimated date of confinement of March 15, 2021. structures are not seen at this early gestational age. The LMP of 05/30/2020 corresponds the 9 week 6 day gestational age and estimated confinement of March 06, 2021. There are small cysts on the right ovary. There is a small cyst in the left ovary. The right ovary measures 4.9 x 3.8 x 3.1 cm. Left ovary measures 4.3 x 2.4 x 2.4 cm. The yolk sac is seen. There is a small subchorionic hemorrhage adjacent to the gestational sac. IMPRESSION: 1. Single live intrauterine at 8 weeks 4 days gestational age by ultrasound. 2. Small subchorionic hemorrhage. A short-term follow-up ultrasound could be performed if clinically indicated otherwise a structural survey would be performed at 18-21 weeks gestational age. Electronically signed by: Stanford Santillan III, MD (08/07/2020 11:59 PM) [facility] DICTATED and SIGNED BY: STANFORD SANTILLAN III, MD DATE: 08/07/20 5301 [] Course & Med Decision Making: Course & Med Decision Making Pertinent Labs and Imaging studies reviewed. (See chart for details) [] Patient is a 20-year-old female who arrives via EMS for somnolence after ingesting edible marijuana. Initial examination patient does have a GCS (14) E3V5M6 and she is somnolent. Easily arousable to voice. Basic labs were obtained. Patient does have a potassium of 5.8 with an elevated creatinine. She does have a history of ESRD and does receive dialysis treatments on Mondays, Wednesdays, and Fridays. No EKG changes consistent with this. Urinalysis was attempted to be obtained but she states that she does not make very much urine. testing did return positive. On further interview patient does state that she missed her period for the month of June and has had intermittent spotting over the past day or so. Pelvic exam performed and noted above. Type and screen notable for a blood type of O+. RhoGam would be deferred. Ultrasound was obtained and did reveal an intrauterine estimated gestational age of 8 weeks and 4 days. Patient was monitored in emergency department showed no signs of clinical deterioration. She is alert and oriented x3. GCS 15. Sister is at bedside and can transport the patient home. I do feel the patient requires hospitalization for emergent dialysis given she will receive treatment in the next 6 hours. Sister at bedside states that they will make sure she makes her appointment in the next few hours. She be given referral to our LABORATORY CHIEF but may ultimately need high scaler/GYN. Return precautions discussed and understood. Stable for discharge. Dragon Disclaimer: Dragon Disclaimer: This electronic medical record was generated, in whole or in part, using a voice recognition dictation system. Departure Departure Impression: Primary Impression: Marijuana abuse Additional Impressions: ESRD (end stage renal disease) Hyperkalemia Threatened Disposition: 01 DC HOME SELF CARE/HOMELESS Condition: STABLE Referrals: TIM DIOR APRN (PCP) ANUJA GARCIA MD Patient Instructions: End Stage Kidney Disease, Hyperkalemia, Threatened Miscarriage Additional Instructions: Please go to your dialysis appointment in 6 hours. Please follow-up with LABORATORY CHIEF in the next 2 to 3 days. Please follow with your primary care physician next 1 to 2 days. RASHMI MENENDEZ DO Aug 07, 2020 19:14
[2020-08-07] MEDS ORDERED: IV NORMAL SALINE 1000ML BAG 1,000 ML IV ONE (19:15)
[2020-08-07 19:42] LABS: BASO % 0 % (0-3); EOS % 0 % (0-3); HEMATOCRIT 31.6 % (36.0-47.0); HEMOGLOBIN 10.3 g/dL (12.0-15.5); LYMPH # 0.5 x10^3/uL (1.0-4.8); LYMPH % 4 % (24-48); MEAN CORPUSCULAR HEMOGLOBIN 31 pg (25-35); MEAN CORPUSCULAR HGB CONC 33 g/dL (31-37); MEAN CORPUSCULAR VOLUME 95 fL (79-100); MONO # 0.4 x10^3/uL (0.0-1.1); MONO % 3 % (0-9); NEUT # 12.3 x10^3/uL (1.8-7.7); NEUT % 93 % (31-73); PLATELET COUNT 297 x10^3/uL (140-400); RED BLOOD COUNT 3.33 x10^6/uL (3.50-5.40); RED CELL DISTRIBUTION WIDTH 18.7 % (11.5-14.5); WHITE BLOOD COUNT 13.2 x10^3/uL (4.0-11.0)
[2020-08-07 19:50] LABS: CALCIUM 8.1 mg/dL (8.5-10.1); CREATININE 12.5 mg/dL (0.6-1.0); GFR 3.8; POTASSIUM 5.8 mmol/L (3.5-5.1)
[2020-08-07 20:14] LABS: % LYMPHS 6 % (24-48); % MONOS 1 % (0-10); % SEGS 93 % (35-66); ANISOCYTOSIS SLIGHT; HYPOCHROMIA SLIGHT; PLT ESTIMATE ADEQUATE (ADEQUATE); POLYCHROMASIA SLIGHT
[2020-08-07 22:25] LABS: BILIRUBIN,URINE NEGATIVE (NEG); CLARITY,URINE CLOUDY; COLOR,URINE YELLOW; NITRITE,URINE NEGATIVE (NEG); PH,URINE 8.5 (<5.0-8.0); PROTEIN,URINE 100 mg/dL (NEG-TRACE); UROBILINOGEN,URINE 0.2 mg/dL (0.2 mg/dL)
[2020-08-07 22:30] LABS: BARBITURATES NEG (NEG); BENZODIAZEPINES NEG (NEG); CANNABINOIDS NEG (NEG); COCAINE NEG (NEG); METHADONE NEG (NEG); OPIATES NEG (NEG); PHENCYCLIDINE NEG (NEG)
[2020-08-07 22:33] LABS: AMPHETAMINE/METHAMPHETAMINE NEG (NEG)
[2020-08-07 22:41] LABS: BACTERIA,URINE MANY /HPF (0-FEW)
--- NOTE | 2020-08-08 00:02 | RAD ---
OB ultrasound less than 14 weeks HISTORY: and abdominal pain and drug abuse Sonographic sedation appearance was performed by transabdominal technique and multiple static images were obtained. There is a single live intrauterine . The heartbeat is confirmed at 155 beats for minute. The crown-rump length of 2.0 cm corresponds with an 8 week 4 day gestational age and estimated date of confinement of March 15, 2021. structures are not seen at this early gestational age. The LMP of 05/30/2020 corresponds the 9 week 6 day gestational age and estimated confinement of March 06, 2021. There are small cysts on the right ovary. There is a small cyst in the left ovary. The right ovary measures 4.9 x 3.8 x 3.1 cm. Left ovary measures 4.3 x 2.4 x 2.4 cm. The yolk sac is seen. There is a small subchorionic hemorrhage adjacent to the gestational sac. IMPRESSION: 1. Single live intrauterine at 8 weeks 4 days gestational age by ultrasound. 2. Small subchorionic hemorrhage. A short-term follow-up ultrasound could be performed if clinically indicated otherwise a structural survey would be performed at 18-21 weeks gestational age. Electronically signed by: Sudeep Fair III, MD (08/07/2020 11:59 PM) [facility]
[2020-08-08 03:22] VITALS: BP 139/71
--- NOTE | 2020-08-08 18:24 | EKG ---
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
[2020-08-09 19:18] LABS: GC PROBE Negative (Negative)
== END 2020-08-08 00:30 | disposition home or self-care (01) ==
LOC: ER 18:32
DX: O20.0 Threatened abortion (principal); N18.6 End stage renal disease; E87.5 Hyperkalemia; F12.10 Cannabis abuse, uncomplicated; R53.83 Other fatigue; Z87.891 Personal history of nicotine dependence; Z98.890 Other specified postprocedural states; Z3A.08 8 weeks gestation of pregnancy
CPT/HCPCS: 36415; 76801; 80048; 80307; 81001; 84702; 85007; 85025; 86850; 86900; 86901; 87086; 87491; 87591; 93005; 99285; G0480; Q0111

== ENCOUNTER 2020-09-24 00:53 | Emergency (ER) | payer MEDICARE, MEDICAID ==
[~2020-09-24] VITALS: Ht 160 cm; Wt 90.0 kg
[2020-09-24 01:17] VITALS: BP 131/84
[2020-09-24] MEDS ORDERED: IV NORMAL SALINE 1000ML BAG 1,000 ML IV ONE (01:30)
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
[2020-09-24 01:52] LABS: BASO # 0.1 x10^3/uL (0.0-0.2); BASO % 1 % (0-3); EOS # 0.1 x10^3/uL (0.0-0.7); EOS % 1 % (0-3); HEMATOCRIT 26.3 % (36.0-47.0); LYMPH # 1.2 x10^3/uL (1.0-4.8); LYMPH % 14 % (24-48); MEAN CORPUSCULAR HEMOGLOBIN 31 pg (25-35); MEAN CORPUSCULAR HGB CONC 34 g/dL (31-37); MEAN CORPUSCULAR VOLUME 92 fL (79-100); MONO # 0.5 x10^3/uL (0.0-1.1); MONO % 6 % (0-9); NEUT # 6.8 x10^3/uL (1.8-7.7); NEUT % 79 % (31-73); PLATELET COUNT 379 x10^3/uL (140-400); RED BLOOD COUNT 2.86 x10^6/uL (3.50-5.40); RED CELL DISTRIBUTION WIDTH 17.5 % (11.5-14.5); WHITE BLOOD COUNT 8.7 x10^3/uL (4.0-11.0)
[2020-09-24 02:02] LABS: CALCIUM 9.2 mg/dL (8.5-10.1); CREATININE 7.4 mg/dL (0.6-1.0); GFR 6.9; POTASSIUM 4.1 mmol/L (3.5-5.1)
[2020-09-24 02:07] LABS: ALBUMIN/GLOBULIN RATIO 0.8 (1.0-1.7); MAGNESIUM 2.5 mg/dL (1.8-2.4); TOTAL BILIRUBIN 0.3 mg/dL (0.2-1.0)
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
== END 2020-09-24 03:55 | disposition home or self-care (01) ==
LOC: ER 00:53
DX: O9A.312 Physical abuse complicating pregnancy, second trimester (principal); S30.1XXA Contusion of abdominal wall, initial encounter; R42 Dizziness and giddiness; N18.6 End stage renal disease; Z99.2 Dependence on renal dialysis; R10.2 Pelvic and perineal pain; Z3A.15 15 weeks gestation of pregnancy; Y04.0XXA Assault by unarmed brawl or fight, initial encounter; Y93.89 Activity, other specified; Y92.098 Other place in other non-institutional residence as the place of occurrence of the external cause; Y99.8 Other external cause status
CPT/HCPCS: 36415; 76815; 80053; 83735; 84702; 85025; 99284; G0480